=== PATIENT | female | born 1985 | race Caucasian/White ===

== ENCOUNTER 2017-07-08 13:02 | Emergency (ER) | payer OTHER ==
[2017-07-08] MEDS: LEVALBUTEROL 1.25 MG/0.5 ML CONCENTRATE NEB INH ×3 (17:15→17:31)
[2017-07-08] MEDS: AUGMENTIN 875 MG TAB PO (17:46)
== END 2017-07-08 17:51 | disposition home or self-care (01) ==
LOC: M ED 13:02
DX: J01.90 Acute sinusitis, unspecified (principal); J20.9 Acute bronchitis, unspecified; F17.200 Nicotine dependence, unspecified, uncomplicated
CPT/HCPCS: 71046

== ENCOUNTER 2017-12-05 16:26 | Inpatient (IN) | payer OTHER ==
[2017-12-05 17:13] LABS: HEMATOCRIT 41.6 % (36.0-47.0); HEMOGLOBIN 12.8 g/dl (12.0-15.5); MEAN CORPUSCULAR HEMOGLOBIN 25.7 pg (27.0-33.0); MEAN CORPUSCULAR HGB CONC 30.8 g/dl (32.0-36.5); MEAN CORPUSCULAR VOLUME 83.4 fl (80.0-96.0); PLATELET COUNT, AUTOMATED 397 10^3/uL (150-450); RED BLOOD COUNT 4.99 10^6/uL (4.00-5.40); RED CELL DISTRIBUTION WIDTH 14.6 % (11.5-14.5); WHITE BLOOD COUNT 11.6 10^3/uL (4.0-10.0)
[2017-12-05 17:27] LABS: CONTROL LINE HCG INT CTR LINE PRESENT; HCG, SERUM QUALITATIVE NEGATIVE (NEGATIVE)
[2017-12-05 17:31] LABS: AMPHETAMINES LEVEL URINE NEGATIVE (NEGATIVE); BARBITURATES URINE NEGATIVE (NEGATIVE); BENZODIAZEPINES URINE NEGATIVE (NEGATIVE); CANNABINOIDS URINE NEGATIVE (NEGATIVE); COCAINE METABOLITE URINE NEGATIVE (NEGATIVE); METHADONE URINE NEGATIVE (NEGATIVE); OPIATES URINE NEGATIVE (NEGATIVE); PHENCYCLIDINE URINE NEGATIVE (NEGATIVE)
[2017-12-05 17:48] LABS: ACETAMINOPHEN LEVEL < 2.0 UG/ML (10.0-30.0); ALBUMIN 3.1 GM/DL (3.2-5.2); ALBUMIN/GLOBULIN RATIO 0.65 (1.00-1.93); ALKALINE PHOSPHATASE 144 U/L (45-117); ALT/SGPT 27 U/L (12-78); ANION GAP 8 MEQ/L (8-16); AST/SGOT 18 U/L (7-37); BILIRUBIN,DIRECT < 0.1 MG/DL (0.0-0.2); BILIRUBIN,TOTAL 0.3 MG/DL (0.2-1.0); BLOOD UREA NITROGEN 13 MG/DL (7-18); CALCIUM LEVEL 8.2 MG/DL (8.5-10.1); CARBON DIOXIDE LEVEL 27 MEQ/L (21-32); CHLORIDE LEVEL 104 MEQ/L (98-107); ETHYL ALCOHOL (ETHANOL) < 0.003 % (0.000-0.010); GLOMERULAR FILTRATION RATE > 60.0 (>60); GLUCOSE, FASTING 198 MG/DL (70-100); POTASSIUM SERUM 4.1 MEQ/L (3.5-5.1); SODIUM LEVEL 139 MEQ/L (136-145); TOTAL PROTEIN 7.9 GM/DL (6.4-8.2)
[2017-12-05 18:39] LABS: ESTIMATED AVERAGE GLUCOSE 186 MG/DL (60-110); HEMOGLOBIN A1c 8.1 %
[2017-12-05] MEDS: diphenhydrAMINE 25 MG CAP PO (23:32)
[2017-12-06] MEDS ORDERED: MAALOX 30 ML SUSP *UDC PO (15:30)
[2017-12-06] MEDS ORDERED: MOM 30ML SUSPENSION UDC PO (15:30)
[2017-12-06] MEDS: NICOTINE 21MG/24HR 1 EA TRANSDERMAL TD (20:04)
[2017-12-06] MEDS ORDERED: NICOTINE 21MG/24HR 1 EA TRANSDERMAL TD (21:00)
[2017-12-07] MEDS: NICOTINE 21MG/24HR 1 EA TRANSDERMAL TD (08:09)
[2017-12-07] MEDS: INFLUENZA QUADRIVALENT PF VACCINE 0.5ML SYRINGE (90686) IM (08:10)
[2017-12-07] MEDS: NYSTATIN 100,000 UNITS/GM TOPICAL PWD 15 GM TOP ×2 (09:00→21:00)
[2017-12-07] MEDS: LOTRISONE CREAM 15 GM (BETAMETH/CLOTRIMAZOLE) TOP ×2 (11:41→21:32)
[2017-12-07] MEDS: LORazepam 1 MG TAB PO (11:42)
[2017-12-07] MEDS: FLUoxetine 20 MG CAP PO (14:21)
[2017-12-07] MEDS: ARIPiprazole 2 MG TAB PO (14:22)
[2017-12-07] MEDS: metFORMIN (GLUCOPHAGE) 500 MG TAB PO (17:17)
[2017-12-07] MEDS: traZODone 50 MG TAB PO (21:31)
[2017-12-08 06:56] LABS: HEMOGLOBIN 12.4 g/dl (12.0-15.5); MEAN CORPUSCULAR HEMOGLOBIN 25.5 pg (27.0-33.0); MEAN CORPUSCULAR VOLUME 82.3 fl (80.0-96.0); PLATELET COUNT, AUTOMATED 372 10^3/uL (150-450); RED BLOOD COUNT 4.86 10^6/uL (4.00-5.40); RED CELL DISTRIBUTION WIDTH 14.3 % (11.5-14.5); WHITE BLOOD COUNT 9.7 10^3/uL (4.0-10.0)
[2017-12-08 07:29] LABS: CHOLESTEROL LEVEL 177 MG/DL (<200); CHOLESTEROL RISK RATIO 5.531 (<5); FREE THYROXINE INDEX 2.9 % (1.3-4.8); HDL CHOLESTEROL 32 MG/DL (>40); LDL CHOLESTEROL 124 MG/DL (<100); NON-HDL-C 145 MG/DL; T UPTAKE 32 % (30-39); THYROXINE (T4) 9.2 UG/DL (4.5-12.0); TRIGLYCERIDES LEVEL 106 MG/DL (<150)
[2017-12-08] MEDS: metFORMIN (GLUCOPHAGE) 500 MG TAB PO ×3 (08:00→17:02)
[2017-12-08] MEDS: NYSTATIN 100,000 UNITS/GM TOPICAL PWD 15 GM TOP ×3 (08:50→20:22)
[2017-12-08] MEDS: LOTRISONE CREAM 15 GM (BETAMETH/CLOTRIMAZOLE) TOP ×2 (08:51→20:22)
[2017-12-08] MEDS: FLUoxetine 20 MG CAP PO (08:51)
[2017-12-08] MEDS: NICOTINE 21MG/24HR 1 EA TRANSDERMAL TD (08:52)
[2017-12-08 16:57] LABS: BEDSIDE GLUCOSE 149 MG/DL (70-105)
[2017-12-08] MEDS: traZODone 50 MG TAB PO (20:21)
[2017-12-09 06:35] LABS: BEDSIDE GLUCOSE 148 MG/DL (70-105)
[2017-12-09] MEDS: NICOTINE 21MG/24HR 1 EA TRANSDERMAL TD (08:13)
[2017-12-09] MEDS: metFORMIN (GLUCOPHAGE) 500 MG TAB PO ×2 (08:13→17:18)
[2017-12-09] MEDS: LOTRISONE CREAM 15 GM (BETAMETH/CLOTRIMAZOLE) TOP ×2 (08:13→22:13)
[2017-12-09] MEDS: NYSTATIN 100,000 UNITS/GM TOPICAL PWD 15 GM TOP ×2 (08:13→21:00)
[2017-12-09] MEDS: FLUoxetine 20 MG CAP PO (08:13)
[2017-12-09] MEDS: ACETAMINOPHEN TAB 650MG DOSE (2X325MG) PO (12:17)
[2017-12-09] MEDS ORDERED: PILL CRUSHER/CUTTER 1 EACH XX (15:00)
[2017-12-09 17:09] LABS: BEDSIDE GLUCOSE 164 MG/DL (70-105)
[2017-12-09] MEDS: LORazepam 1 MG TAB PO (20:52)
[2017-12-09] MEDS: traZODone 50 MG TAB PO (22:07)
[2017-12-10 06:17] LABS: BEDSIDE GLUCOSE 88 MG/DL (70-105)
[2017-12-10] MEDS: LOTRISONE CREAM 15 GM (BETAMETH/CLOTRIMAZOLE) TOP ×2 (08:20→20:54)
[2017-12-10] MEDS: metFORMIN (GLUCOPHAGE) 500 MG TAB PO ×2 (08:20→17:11)
[2017-12-10] MEDS: NICOTINE 21MG/24HR 1 EA TRANSDERMAL TD (08:20)
[2017-12-10] MEDS: FLUoxetine 20 MG CAP PO (08:20)
[2017-12-10] MEDS: NYSTATIN 100,000 UNITS/GM TOPICAL PWD 15 GM TOP ×2 (08:20→20:55)
[2017-12-10 17:13] LABS: BEDSIDE GLUCOSE 120 MG/DL (70-105)
[2017-12-10] MEDS: LORazepam 1 MG TAB PO (20:14)
[2017-12-10] MEDS: traZODone 50 MG TAB PO (20:53)
[2017-12-11] MEDS: ACETAMINOPHEN TAB 650MG DOSE (2X325MG) PO (01:56)
[2017-12-11] MEDS: NICOTINE 21MG/24HR 1 EA TRANSDERMAL TD (08:13)
[2017-12-11] MEDS: metFORMIN (GLUCOPHAGE) 500 MG TAB PO ×2 (08:13→17:06)
[2017-12-11] MEDS: FLUoxetine 20 MG CAP PO (08:13)
[2017-12-11] MEDS: NYSTATIN 100,000 UNITS/GM TOPICAL PWD 15 GM TOP ×2 (09:38→21:00)
[2017-12-11] MEDS: LOTRISONE CREAM 15 GM (BETAMETH/CLOTRIMAZOLE) TOP ×2 (09:38→21:03)
[2017-12-11 11:16] LABS: BEDSIDE GLUCOSE 115 MG/DL (70-105)
[2017-12-11] MEDS: hydrOXYzine 50 MG TAB PO (11:41)
[2017-12-11 16:59] LABS: BEDSIDE GLUCOSE 132 MG/DL (70-105)
[2017-12-11] MEDS: traZODone 50 MG TAB PO (22:50)
[2017-12-12 06:34] LABS: BEDSIDE GLUCOSE 109 MG/DL (70-105)
[2017-12-12] MEDS: metFORMIN (GLUCOPHAGE) 500 MG TAB PO ×2 (08:00→17:00)
[2017-12-12] MEDS: FLUoxetine 20 MG CAP PO (08:30)
[2017-12-12] MEDS: NYSTATIN 100,000 UNITS/GM TOPICAL PWD 15 GM TOP ×2 (08:30→20:22)
[2017-12-12] MEDS: LOTRISONE CREAM 15 GM (BETAMETH/CLOTRIMAZOLE) TOP ×2 (08:31→20:19)
[2017-12-12] MEDS: NICOTINE 21MG/24HR 1 EA TRANSDERMAL TD (08:32)
[2017-12-12 17:03] LABS: BEDSIDE GLUCOSE 131 MG/DL (70-105)
[2017-12-13 06:17] LABS: BEDSIDE GLUCOSE 115 MG/DL (70-105)
[2017-12-13] MEDS: metFORMIN (GLUCOPHAGE) 500 MG TAB PO (08:00)
[2017-12-13] MEDS: FLUoxetine 20 MG CAP PO (08:02)
[2017-12-13] MEDS: NYSTATIN 100,000 UNITS/GM TOPICAL PWD 15 GM TOP (08:03)
[2017-12-13] MEDS: LOTRISONE CREAM 15 GM (BETAMETH/CLOTRIMAZOLE) TOP (08:03)
[2017-12-13] MEDS: NICOTINE 21MG/24HR 1 EA TRANSDERMAL TD (08:03)
[2017-12-13] MEDS: hydrOXYzine 50 MG TAB PO (10:09)
== END 2017-12-13 12:00 | disposition home or self-care (01) | DRG 885 ==
LOC: M PSY 12-08 23:33 → M ED INP 12-06 15:25 → M PSY 12-09 21:02 → M ED 16:26 → M PSY 12-06 16:15
DX: F31.81 Bipolar II disorder (principal); Z68.44 Body mass index [BMI] 60.0-69.9, adult; F41.1 Generalized anxiety disorder; F43.10 Post-traumatic stress disorder, unspecified; Z79.899 Other long term (current) drug therapy; E66.9 Obesity, unspecified; Z63.5 Disruption of family by separation and divorce; F17.200 Nicotine dependence, unspecified, uncomplicated; E11.9 Type 2 diabetes mellitus without complications

== ENCOUNTER 2018-07-11 23:31 | Inpatient (IN) | payer OTHER ==
[~2018-07-11] VITALS: Ht 170.2 cm; Wt 213.6 kg
[~2018-07-11 23:31] MED LIST: ARIP1TAB6 PO; AUGM875T28 PO; CLAR1TAB2 PO; CLOT1CRE71 TOP; FLUO20CA19 PO; HYDRO50TAB PO; METF500T13 PO; MUCI600T37 PO; NICO21PAT TD; NYAM10003 TOP; PRED20TA PO; TRAZO50TA PO
[2018-07-12 00:03] LABS: HEMATOCRIT 41.3 % (36.0-47.0); MEAN CORPUSCULAR HEMOGLOBIN 24.2 pg (27.0-33.0); MEAN CORPUSCULAR HGB CONC 29.1 g/dl (32.0-36.5); MEAN CORPUSCULAR VOLUME 83.3 fl (80.0-96.0); PLATELET COUNT, AUTOMATED 348 10^3/uL (150-450); RED BLOOD COUNT 4.96 10^6/uL (4.00-5.40); WHITE BLOOD COUNT 9.1 10^3/uL (4.0-10.0)
[2018-07-12 00:26] LABS: HCG, SERUM QUALITATIVE NEGATIVE (NEGATIVE)
[2018-07-12 00:42] LABS: ACETAMINOPHEN LEVEL < 2.0 UG/ML (10.0-30.0); ALT/SGPT 19 U/L (12-78); BILIRUBIN,DIRECT < 0.1 MG/DL (0.0-0.2); BILIRUBIN,TOTAL 0.3 MG/DL (0.2-1.0); BLOOD UREA NITROGEN 6 MG/DL (7-18); CALCIUM LEVEL 8.5 MG/DL (8.5-10.1); CARBON DIOXIDE LEVEL 32 MEQ/L (21-32); CHLORIDE LEVEL 101 MEQ/L (98-107); CREATININE FOR GFR 0.72 MG/DL (0.55-1.30); ETHYL ALCOHOL (ETHANOL) < 0.003 % (0.000-0.010); GLOMERULAR FILTRATION RATE > 60.0 (>60); GLUCOSE, FASTING 298 MG/DL (70-100); POTASSIUM SERUM 3.8 MEQ/L (3.5-5.1); SALICYLATE LEVEL < 1.7 MG/DL (5.0-30.0); SODIUM LEVEL 138 MEQ/L (136-145); TOTAL PROTEIN 7.2 GM/DL (6.4-8.2)
[2018-07-12 01:43] LABS: AMPHETAMINES LEVEL URINE NEGATIVE (NEGATIVE); BARBITURATES URINE NEGATIVE (NEGATIVE); BENZODIAZEPINES URINE NEGATIVE (NEGATIVE); CANNABINOIDS URINE POSITIVE (NEGATIVE); COCAINE METABOLITE URINE NEGATIVE (NEGATIVE); METHADONE URINE NEGATIVE (NEGATIVE); OPIATES URINE NEGATIVE (NEGATIVE); PHENCYCLIDINE URINE NEGATIVE (NEGATIVE)
[2018-07-12 02:02] LABS: HEMOGLOBIN A1c 10.6 %
[2018-07-12] MEDS ORDERED: SITagliptin 50 MG TAB (JANUVIA) PO ONE (02:30)
[2018-07-12] MEDS ORDERED: MAALOX 30 ML SUSP *UDC PO PRN (02:45)
[2018-07-12] MEDS ORDERED: MOM 30ML SUSPENSION UDC PO PRN (02:45)
[2018-07-12 03:10] VITALS: BP 144/81
[2018-07-12] MEDS ORDERED: VOLT1GEL15 EXT (03:31)
[2018-07-12] MEDS ORDERED: FLUO40CA PO (03:31)
[2018-07-12] MEDS ORDERED: SITA50TAB PO (03:31)
[2018-07-12] MEDS ORDERED: ABIL1TAB11 PO (03:31)
[2018-07-12] MEDS ORDERED: TRAZ-160 PO (03:31)
[2018-07-12 06:33] VITALS: BP 131/60
[2018-07-12] MEDS: NICOTINE 21MG/24HR 1 EA TRANSDERMAL TD SCH (08:57)
[2018-07-12] MEDS: CLOTRIMAZOLE 1% TOPICAL CREAM 30GM TOP SCH ×2 (09:00→20:03)
[2018-07-12] MEDS: BETAMETHASONE VAL 0.1% CR 15 GM TOP SCH ×2 (09:00→20:03)
[2018-07-12] MEDS: FLUoxetine 20 MG CAP PO SCH (12:03)
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
[2018-07-12 18:00] VITALS: BP 150/75
[2018-07-13 06:39] VITALS: BP 148/70
[2018-07-13 07:40] LABS: FREE THYROXINE INDEX 3.1 % (1.3-4.8); THYROID STIMULATING HORMONE 5.22 uIU/ML (0.358-3.740); THYROXINE (T4) 10.1 UG/DL (4.5-12.0)
[2018-07-13] MEDS: SITagliptin 50 MG TAB (JANUVIA) PO SCH (08:38)
[2018-07-13] MEDS: NICOTINE 21MG/24HR 1 EA TRANSDERMAL TD SCH (08:38)
[2018-07-13] MEDS: FLUoxetine 20 MG CAP PO SCH (08:38)
[2018-07-13] MEDS: CLOTRIMAZOLE 1% TOPICAL CREAM 30GM TOP SCH ×2 (08:39→20:20)
[2018-07-13] MEDS: BETAMETHASONE VAL 0.1% CR 15 GM TOP SCH ×2 (08:39→20:20)
[2018-07-13] MEDS ORDERED: SITagliptin 50 MG TAB (JANUVIA) PO SCH (09:00)
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
[2018-07-13] MEDS ORDERED: PILL CUTTER 1 EACH XX PRN (16:15)
[2018-07-13] MEDS: buPROPion 100 MG TAB PO SCH (16:16)
[2018-07-13 18:33] VITALS: BP 134/69
[2018-07-13] MEDS: traZODone 50 MG TAB PO PRN (20:19)
[2018-07-14] MEDS: LEVOTHYROXINE 50MCG TABLET (0.05MG) PO SCH (05:53)
[2018-07-14 06:34] VITALS: BP 140/93
[2018-07-14] MEDS: FLUoxetine 20 MG CAP PO SCH (08:12)
[2018-07-14] MEDS: SITagliptin 50 MG TAB (JANUVIA) PO SCH (08:12)
[2018-07-14] MEDS: buPROPion 100 MG TAB PO SCH ×2 (08:12→16:12)
[2018-07-14] MEDS: NICOTINE 21MG/24HR 1 EA TRANSDERMAL TD SCH (08:13)
[2018-07-14] MEDS: CLOTRIMAZOLE 1% TOPICAL CREAM 30GM TOP SCH ×2 (08:14→20:37)
[2018-07-14] MEDS: BETAMETHASONE VAL 0.1% CR 15 GM TOP SCH ×2 (08:15→20:37)
[2018-07-14] MEDS ORDERED: buPROPion 100 MG TAB PO SCH (09:00)
--- NOTE | 2018-07-14 14:31 | HPE ---
DATE OF ADMISSION: 07/12/2018 HISTORY OF THE PRESENT ILLNESS: Please refer to psychiatric history and evaluation for further details on this admission. This examination and history is intended for medical issues which may need treatment, followup, or consult on this 33-year-old female. ALLERGIES: No known allergies. PRIMARY CARE PROVIDER: Jaleesa. SOCIAL HISTORY: She is . Her is a soldier, currently stationed at [place]. She has one child. Smokes one pack of cigarettes per day. Ethyl alcohol (EtOH) rarely. Illicit drugs: Marijuana. IV drug use: None. FAMILY HISTORY: Mother is alive with diabetes, history of breast cancer. Father is , completed suicide. Siblings: Two brothers and one sister alive, health unknown. Paternal uncle completed suicide. PAST MEDICAL HISTORY: Anxiety. Depression. History of suicidal ideation, self harm. Obesity with a body mass index (BMI) of 73.5. Non-insulin dependent diabetes type 2. PAST SURGICAL HISTORY: section times one. EKG on file; sinus tachycardia, done 12/07/2017. LABORATORY STUDIES: Urine was positive for cannabinoids. Sodium 138, potassium 3.8, chloride 101, CO2 of 32, BUN 6, creatinine 0.72, nonfasting glucose of 298, hemoglobin A1c is 10.6. TSH is elevated at 6.460. Beta hCG is negative. White count 9.1, hemoglobin 12, hematocrit 41.3, platelets 348. Chest x-ray showed no acute disease. HOME MEDICATIONS: - Abilify 5 mg by mouth nightly - fluoxetine 40 mg by mouth daily - Januvia 50 mg by mouth daily - trazodone 50 mg by mouth nightly as needed for sleep - Voltaren gel four times a day as needed for pain REVIEW OF SYSTEMS: Eleven systems review was done and her only complaint is of itching, dry, cracked, excoriated feet. PHYSICAL EXAM: A 33-year-old obese female in no acute distress.. Height 67 inches, weight 213 kg, body mass index (BMI) 73.5. Blood pressure 143/83, pulse 100, respirations 18, oxygen saturation (O2 sat) 94% on room air, temperature is 98. The patient is alert and oriented times three. Pupils are equal and reactive to light. Pharynx: Tongue and gums pink and moist. Tongue is midline. Neck is supple without lymphadenopathy. No thyromegaly. No goiter. Jugular venous pressure is below clavicle. Chest is clear to auscultation without wheeze or retractions. Heart is regular without murmur or gallop. Abdomen is obese. No masses, pulsations or bruits. No organomegaly. Bowel sounds are positive. Genital/Rectal: Not done. Extremities show no cyanosis, clubbing, or edema. Bilateral feet are excoriated, cracked, dry, red, slight vesicular-type rash between toes. IMPRESSION AND PLAN: Psychiatric plan per psychiatry. Non-insulin dependent diabetes, type 2, with poor control. Will check fingerstick blood sugar twice a day, adjust medication as needed. Increase her Januvia to 100. Change her to a consistent carbohydrate diet. Will need diabetic education, follow as an outpatient. Bilateral tinea pedis. Lotrisone, betamethasone cream and clobetasol cream twice a day to feet after washed daily with warm, soapy water. Elevated thyroid-stimulating hormone (TSH). Will get a complete thyroid profile in the morning.
[2018-07-14] MEDS: ACETAMINOPHEN TAB 650MG DOSE (2X325MG) PO PRN (14:55)
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
[2018-07-14 18:02] VITALS: BP 125/70
[2018-07-14] MEDS: traZODone 50 MG TAB PO PRN (20:36)
[2018-07-15] MEDS: LEVOTHYROXINE 50MCG TABLET (0.05MG) PO SCH (05:49)
[2018-07-15 06:38] VITALS: BP 133/63
[2018-07-15] MEDS: MODAFINIL 100 MG TABLET PO SCH (08:04)
[2018-07-15] MEDS: buPROPion 100 MG TAB PO SCH (08:04)
[2018-07-15] MEDS: NICOTINE 21MG/24HR 1 EA TRANSDERMAL TD SCH (08:04)
[2018-07-15] MEDS: SITagliptin 50 MG TAB (JANUVIA) PO SCH (08:04)
[2018-07-15] MEDS: FLUoxetine 20 MG CAP PO SCH (08:05)
[2018-07-15] MEDS: BETAMETHASONE VAL 0.1% CR 15 GM TOP SCH ×2 (11:40→22:31)
[2018-07-15] MEDS: CLOTRIMAZOLE 1% TOPICAL CREAM 30GM TOP SCH ×2 (11:40→22:31)
[2018-07-15] MEDS: ACETAMINOPHEN TAB 650MG DOSE (2X325MG) PO PRN ×2 (11:43→20:50)
[2018-07-15 18:09] VITALS: BP 147/67
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
[2018-07-15] MEDS: traZODone 50 MG TAB PO PRN (20:48)
[2018-07-16] MEDS: LEVOTHYROXINE 75MCG TABLET (0.075MG) PO SCH (06:00)
[2018-07-16 07:02] VITALS: BP 132/84
[2018-07-16] MEDS: buPROPion 75 MG TAB PO SCH (08:51)
[2018-07-16] MEDS: MODAFINIL 100 MG TABLET PO SCH (08:51)
[2018-07-16] MEDS: SITagliptin 50 MG TAB (JANUVIA) PO SCH (08:51)
[2018-07-16] MEDS: CLOTRIMAZOLE 1% TOPICAL CREAM 30GM TOP SCH ×2 (08:51→22:20)
[2018-07-16] MEDS: FLUoxetine 20 MG CAP PO SCH (08:51)
[2018-07-16] MEDS: NICOTINE 21MG/24HR 1 EA TRANSDERMAL TD SCH (08:52)
[2018-07-16] MEDS: BETAMETHASONE VAL 0.1% CR 15 GM TOP SCH ×2 (08:52→22:21)
[2018-07-16] MEDS: ACETAMINOPHEN TAB 650MG DOSE (2X325MG) PO PRN ×2 (08:56→20:40)
[2018-07-16] MEDS: NYSTATIN 100,000 UNITS/GM TOPICAL PWD 15 GM TOP SCH ×2 (12:05→22:19)
--- NOTE | 2018-07-16 14:54 | MHIPNPDOC ---
[facility] Progress Note Progress Note DATE OF SERVICE: 07/16/18 HISTORY: Patient treated for depression, stating that her medicines are no longer working. She is guilty about a marital affair and feels awful. She is isolating herself from other patients because she states they are making fun of her. She requested definitely to be reduced to 100 mg because it is causing her sleep difficulties. VITAL SIGNS: See below. NEW TEST RESULTS: On. CURRENT MEDICATIONS: See below. MENTAL STATUS EXAMINATION: Patient is a 33-year old female, who is, admitted for depression. Speech: Is, normal. Language skills are. No disturbance. Thought processes including:. No disturbance. Thought content: Sad and guilty. Abstract reasoning, and computation: To abstract. Description of associations: Loose association. Description of abnormal or psychotic thoughts:. No psychotic thought. Judgment: Good. Insight:. Good. Orientation: Intact 3. Recent and remote memory:. No difficulties. Attention span and concentration:. No difficulties. Language: normal. Fund of knowledge: Intact. Mood:, Sad. Affect:, Congruent. DIAGNOSES: 1., Major depression. 2., Marital stress.. ASSESSMENT: 33-year-old female with history of depression and recent marital stress MANAGEMENT PLAN: As per Dr. Mccord. TIME SPENT: 30 minutes. Vital Signs Vital Signs Date Time Temp Pulse Resp B/P (MAP) Pulse Ox O2 Delivery O2 Flow Rate FiO2 07/16/18 07:02 98.1 101 16 132/84 (100) 07/12/18 02:27 93 Room Air Laboratory Data 24H Labs Laboratory Tests 2 07/15/18 16:20: Bedside Glucose (Misc Panel) 253H 07/16/18 06:08: Bedside Glucose (Misc Panel) 192H Current Medications Current Medications Acetaminophen (Tylenol Tab) 650 mg Q6HP PRN PO HEADACHE or DISCOMFORT Last administered on 07/16/18at 08:56; Start 07/12/18 at 02:45 Al Hydrox/Mg Hydrox/Simethicone (Mylanta) 30 ml Q4HP PRN PO HEARTBURN/INDIGESTION; Start 07/12/18 at 02:45 Aripiprazole (AbiLIFY) 5 mg BID PO Last administered on 07/16/18at 08:50; Start 07/12/18 at 09:00 Betamethasone Valerate (Valisone) to feet after wash... BID TOP Last administered on 07/16/18at 08:52; Start 07/12/18 at 09:00 Bupropion HCl (Wellbutrin) 50 mg DAILY PO Last administered on 07/14/18at 08:12; Start 07/13/18 at 16:00; Stop 07/14/18 at 15:51; Status DC Bupropion HCl (Wellbutrin) 50 mg DAILY PO ; Start 07/14/18 at 09:00; Status Cancel Bupropion HCl (Wellbutrin) 100 mg DAILY PO Last administered on 07/15/18at 08:04; Start 07/14/18 at 16:00; Stop 07/15/18 at 13:17; Status DC Bupropion HCl (Wellbutrin) 150 mg DAILY PO Last administered on 07/16/18at 08:51; Start 07/16/18 at 09:00 Clotrimazole (Lotrimin) apply after wash... BID TOP Last administered on 07/16/18 08:51; Start 07/12/18 at 09:00 Fluoxetine HCl (PROzac) 20 mg DAILY PO Last administered on 07/16/18at 08:51; Start 07/14/18 at 09:00 Fluoxetine HCl (PROzac) 60 mg DAILY PO Last administered on 07/13/18at 08:38; Start 07/12/18 at 09:00; Stop 07/13/18 at 15:53; Status DC Home Med (Med Rec Complete!) ASDIRECTED XX ; Start 07/12/18 at 03:45; Stop 07/12/18 at 03:45; Status DC Levothyroxine Sodium (Synthroid) 50 mcg DAILY@06 PO Last administered on 07/15/18at 05:49; Start 07/14/18 at 06:00; Stop 07/15/18 at 13:17; Status DC Levothyroxine Sodium (Synthroid) 75 mcg DAILY@06 PO Last administered on 07/16/18at 06:00; Start 07/16/18 at 06:00 Magnesium Hydroxide (Milk Of Magnesia) 30 ml DAILYPRN PRN PO CONSTIPATION; Start 07/12/18 at 02:45 Modafinil (Provigil) 100 mg QAM PO ; Start 07/17/18 at 09:00 Modafinil (Provigil) 200 mg QAM PO Last administered on 07/16/18 08:51; Start 07/15/18 at 09:00; Stop 07/16/18 at 13:42; Status DC Nicotine (Nicoderm Cq 21mg) 1 patch DAILY TD Last administered on 07/16/18 08:52; Start 07/12/18 at 09:00 Nystatin (Mycostatin Powder, Nystop) To abdominal folds ... BID TOP Last administered on 07/16/18at 12:05; Start 07/16/18 at 12:00 Sitagliptin Phosphate (Januvia) 25 mg DAILY PO ; Start 07/13/18 at 09:00; Status Cancel Sitagliptin Phosphate (Januvia) 100 mg DAILY@0800 PO Last administered on 07/16/18 08:51; Start 07/13/18 at 08:00 Trazodone HCl (Desyrel) 50 mg QHSP PRN PO INSOMNIA Last administered on 07/15/18 20:48; Start 07/12/18 at 02:45 Allergies Coded Allergies: No Known Allergies (Unverified , 07/11/18) ESME STAHL MD July 16, 2018 14:54
[2018-07-16 18:12] VITALS: BP 119/58
[2018-07-17] MEDS: LEVOTHYROXINE 75MCG TABLET (0.075MG) PO SCH (06:00)
[2018-07-17 06:46] VITALS: BP 113/53
[2018-07-17] MEDS: FLUoxetine 20 MG CAP PO SCH (08:11)
[2018-07-17] MEDS: MODAFINIL 100 MG TABLET PO SCH (08:11)
[2018-07-17] MEDS: SITagliptin 50 MG TAB (JANUVIA) PO SCH (08:12)
[2018-07-17] MEDS: NICOTINE 21MG/24HR 1 EA TRANSDERMAL TD SCH (08:12)
[2018-07-17] MEDS: buPROPion 75 MG TAB PO SCH (08:12)
[2018-07-17] MEDS: ACETAMINOPHEN TAB 650MG DOSE (2X325MG) PO PRN ×2 (08:16→20:22)
[2018-07-17] MEDS: CLOTRIMAZOLE 1% TOPICAL CREAM 30GM TOP SCH ×2 (09:55→20:23)
[2018-07-17] MEDS: NYSTATIN 100,000 UNITS/GM TOPICAL PWD 15 GM TOP SCH ×2 (09:55→20:23)
[2018-07-17] MEDS: BETAMETHASONE VAL 0.1% CR 15 GM TOP SCH ×2 (09:55→20:23)
--- NOTE | 2018-07-17 15:13 | MHIPNPDOC ---
[facility] Progress Note Progress Note DATE OF SERVICE: 07/17/18 HISTORY: 33-year-old female admitted for crying spells, guilt and numerous depressive symptoms. VITAL SIGNS: See below. NEW TEST RESULTS: None. CURRENT MEDICATIONS: See below. MENTAL STATUS EXAMINATION: Patient is a 33-year-old female-year old female, who is under the care of [facility] for hypothyroidism, obesity, apnea, depression and uncontrolled diabetes. Speech: Is within normal limits. Language skills are. Adequate. Thought processes including:. No disturbance. Thought content:. No gross abnormalities. Abstract reasoning, and computation: AbleTo abstract. Description of associations:. No loose associations. Description of abnormal or psychotic thoughts: No psychotic thought. Judgment: Fair. Insight: Fair. Orientation: Intact 3. Recent and remote memory:. Intact. Attention span and concentration: Intact. Language:. No disturbance. Fund of knowledge:. Intact. Mood: Sad. Affect:, Congruent. DIAGNOSES: 1. Major depressive illness. 2., Marital difficulties. 3., Numerous medical problems. ASSESSMENT: As above MANAGEMENT PLAN:. As per treatment team. TIME SPENT: 30 minutes. Vital Signs Vital Signs Date Time Temp Pulse Resp B/P (MAP) Pulse Ox O2 Delivery O2 Flow Rate FiO2 07/17/18 06:46 98.3 89 14 113/53 (73) 07/12/18 02:27 93 Room Air Laboratory Data 24H Labs Laboratory Tests 2 07/16/18 17:12: Bedside Glucose (Misc Panel) 258H 07/17/18 06:03: Bedside Glucose (Misc Panel) 191H Current Medications Current Medications Acetaminophen (Tylenol Tab) 650 mg Q6HP PRN PO HEADACHE or DISCOMFORT Last ad ministered on 07/17/18at 08:16; Start 07/12/18 at 02:45 Al Hydrox/Mg Hydrox/Simethicone (Mylanta) 30 ml Q4HP PRN PO HEARTBURN/IN DIGESTION; Start 07/12/18 at 02:45 Aripiprazole (AbiLIFY) 5 mg BID PO Last administered on 07/17/18at 08:11; Start 07/12/18 at 09:00 Betamethasone Valerate (Valisone) to feet after wash... BID TOP Last administered on 07/17/18at 09:55; Start 07/12/18 at 09:00 Bupropion HCl (Wellbutrin) 50 mg DAILY PO Last administered on 07/14/18at 08:12; Start 07/13/18 at 16:00; Stop 07/14/18 at 15:51; Status DC Bupropion HCl (Wellbutrin) 50 mg DAILY PO ; Start 07/14/18 at 09:00; Status Cancel Bupropion HCl (Wellbutrin) 100 mg DAILY PO Last administered on 07/15/18at 08:04; Start 07/14/18 at 16:00; Stop 07/15/18 at 13:17; Status DC Bupropion HCl (Wellbutrin) 150 mg DAILY PO Last administered on 07/17/18at 08:12; Start 07/16/18 at 09:00 Clotrimazole (Lotrimin) apply after wash... BID TOP Last administered on 07/17/18at 09:55; Start 07/12/18 at 09:00 Fluoxetine HCl (PROzac) 20 mg DAILY PO Last administered on 07/17/18at 08:11; Start 07/14/18 at 09:00 Fluoxetine HCl (PROzac) 60 mg DAILY PO Last administered on 07/13/18at 08:38; Start 07/12/18 at 09:00; Stop 07/13/18 at 15:53; Status DC Home Med (Med Rec Complete!) ASDIRECTED XX ; Start 07/12/18 at 03:45; Stop 07/12/18 at 03:45; Status DC Levothyroxine Sodium (Synthroid) 50 mcg DAILY@06 PO Last administered on 07/15/18at 05:49; Start 07/14/18 at 06:00; Stop 07/15/18 at 13:17; Status DC Levothyroxine Sodium (Synthroid) 75 mcg DAILY@06 PO Last administered on 07/17/18at 06:00; Start 07/16/18 at 06:00 Magnesium Hydroxide (Milk Of Magnesia) 30 ml DAILYPRN PRN PO CONSTIPATION; Start 07/12/18 at 02:45 Modafinil (Provigil) 100 mg QAM PO Last administered on 07/17/18at 08:11; Start 07/17/18 at 09:00 Modafinil (Provigil) 200 mg QAM PO Last administered on 07/16/18 08:51; Start 07/15/18 at 09:00; Stop 07/16/18 at 13:42; Status DC Nicotine (Nicoderm Cq 21mg) 1 patch DAILY TD Last administered on 07/17/18 08:12; Start 07/12/18 at 09:00 Nystatin (Mycostatin Powder, Nystop) To abdominal folds ... BID TOP Last administered on 07/17/18 09:55; Start 07/16/18 at 12:00 Sitagliptin Phosphate (Januvia) 25 mg DAILY PO ; Start 07/13/18 at 09:00; Status Cancel Sitagliptin Phosphate (Januvia) 100 mg DAILY@0800 PO Last administered on 07/17/18 08:12; Start 07/13/18 at 08:00 Trazodone HCl (Desyrel) 50 mg QHSP PRN PO INSOMNIA Last administered on 07/15/18at 20:48; Start 07/12/18 at 02:45 Allergies Coded Allergies: No Known Allergies (Unverified , 07/11/18) ESME STAHL MD July 17, 2018 15:13
[2018-07-17 19:23] VITALS: BP 119/71
[2018-07-17] MEDS: traZODone 50 MG TAB PO PRN (20:22)
[2018-07-18] MEDS: LEVOTHYROXINE 75MCG TABLET (0.075MG) PO SCH (05:37)
[2018-07-18 07:10] VITALS: BP 108/57
[2018-07-18] MEDS: SITagliptin 50 MG TAB (JANUVIA) PO SCH (09:00)
[2018-07-18] MEDS: NICOTINE 21MG/24HR 1 EA TRANSDERMAL TD SCH (09:04)
[2018-07-18] MEDS: buPROPion 75 MG TAB PO SCH (09:04)
[2018-07-18] MEDS: FLUoxetine 20 MG CAP PO SCH (09:04)
[2018-07-18] MEDS: ACETAMINOPHEN TAB 650MG DOSE (2X325MG) PO PRN ×2 (09:04→20:11)
[2018-07-18] MEDS: MODAFINIL 100 MG TABLET PO SCH (09:04)
[2018-07-18] MEDS: BETAMETHASONE VAL 0.1% CR 15 GM TOP SCH ×2 (09:06→20:11)
[2018-07-18] MEDS: CLOTRIMAZOLE 1% TOPICAL CREAM 30GM TOP SCH ×2 (09:06→20:12)
[2018-07-18] MEDS: NYSTATIN 100,000 UNITS/GM TOPICAL PWD 15 GM TOP SCH ×2 (09:06→20:11)
--- NOTE | 2018-07-18 11:52 | MHIPNPDOC ---
[facility] Progress Note Progress Note DATE OF SERVICE: 07/18/18 HISTORY: 33-year-old female with hypothyroidism and depression, stating that she has a diagnosis of bipolar disorder in improved mood today. VITAL SIGNS: See below. NEW TEST RESULTS: None. CURRENT MEDICATIONS: See below. MENTAL STATUS EXAMINATION: Patient is a 33-year old female, who is, rated for depression with profound guilt. Speech: Is. Normal. Language skills are disturbance. Thought processes including:. No grossly abnormal. Thought. Thought content: No disturbance. Abstract reasoning, and computation: Able to abstract. Description of associations:. No loose associations. Description of abnormal or psychotic thoughts:, No psychotic thoughts. Judgment:. Good. Insight: Good. Orientation: Intact 3. Recent and remote memory:. No disturbance. Attention span and concentration:. Good. Language: No disturbance. Fund of knowledge: Complete. Mood: Good. Affect:, Bright. DIAGNOSES: 1. Bipolar disorder. 2., Relationship stress. 3., Hypothyroidism. ASSESSMENT:, As above MANAGEMENT PLAN:. As per treatment team. TIME SPENT: 30 minutes. Vital Signs Vital Signs Date Time Temp Pulse Resp B/P (MAP) Pulse Ox O2 Delivery O2 Flow Rate FiO2 07/18/18 07:10 97.4 93 14 108/57 (74) 07/12/18 02:27 93 Room Air Laboratory Data 24H Labs Laboratory Tests 2 07/17/18 17:01: Bedside Glucose (Misc Panel) 215H 07/18/18 05:43: Bedside Glucose (Misc Panel) 188H Current Medications Current Medications Acetaminophen (Tylenol Tab) 650 mg Q6HP PRN PO HEADACHE or DISCOMFORT Last administered on 07/18/18at 09:04; Start 07/12/18 at 02:45 Al Hydrox/Mg Hydrox/Simethicone (Mylanta) 30 ml Q4HP PRN PO HEARTBURN/INDIGESTION; Start 07/12/18 at 02:45 Aripiprazole (AbiLIFY) 5 mg BID PO Last administered on 07/18/18at 09:02; Start 07/12/18 at 09:00 Betamethasone Valerate (Valisone) to feet after wash... BID TOP Last administered on 07/18/18at 09:06; Start 07/12/18 at 09:00 Bupropion HCl (Wellbutrin) 50 mg DAILY PO Last administered on 07/14/18at 08:12; Start 07/13/18 at 16:00; Stop 07/14/18 at 15:51; Status DC Bupropion HCl (Wellbutrin) 50 mg DAILY PO ; Start 07/14/18 at 09:00; Status Cancel Bupropion HCl (Wellbutrin) 100 mg DAILY PO Last administered on 07/15/18at 08:04; Start 07/14/18 at 16:00; Stop 07/15/18 at 13:17; Status DC Bupropion HCl (Wellbutrin) 150 mg DAILY PO Last administered on 07/18/18at 09:04; Start 07/16/18 at 09:00 Clotrimazole (Lotrimin) apply after wash... BID TOP Last administered on at 09:06; Start 07/12/18 at 09:00 Fluoxetine HCl (PROzac) 20 mg DAILY PO Last administered on 07/18/18at 09:04; Start 07/14/18 at 09:00 Fluoxetine HCl (PROzac) 60 mg DAILY PO Last administered on 07/13/18at 08:38; Start 07/12/18 at 09:00; Stop 07/13/18 at 15:53; Status DC Home Med (Med Rec Complete!) ASDIRECTED XX ; Start 07/12/18 at 03:45; Stop 07/12/18 at 03:45; Status DC Levothyroxine Sodium (Synthroid) 50 mcg DAILY@06 PO Last administered on 07/15/18at 05:49; Start 07/14/18 at 06:00; Stop 07/15/18 at 13:17; Status DC Levothyroxine Sodium (Synthroid) 75 mcg DAILY@06 PO Last administered on 07/18/18at 05:37; Start 07/16/18 at 06:00 Magnesium Hydroxide (Milk Of Magnesia) 30 ml DAILYPRN PRN PO CONSTIPATION; Start 07/12/18 at 02:45 Modafinil (Provigil) 100 mg QAM PO Last administered on 07/18/18at 09:04; Start 07/17/18 at 09:00 Modafinil (Provigil) 200 mg QAM PO Last administered on 07/16/18at 08:51; Start 07/15/18 at 09:00; Stop 07/16/18 at 13:42; Status DC Nicotine (Nicoderm Cq 21mg) 1 patch DAILY TD Last administered on 07/18/18at 09:04; Start 07/12/18 at 09:00 Nystatin (Mycostatin Powder, Nystop) To abdominal folds ... BID TOP Last administered on 07/18/18at 09:06; Start 07/16/18 at 12:00 Sitagliptin Phosphate (Januvia) 25 mg DAILY PO ; Start 07/13/18 at 09:00; Status Cancel Sitagliptin Phosphate (Januvia) 100 mg DAILY@0800 PO Last administered on 07/18/18at 09:00; Start 07/13/18 at 08:00 Trazodone HCl (Desyrel) 50 mg QHSP PRN PO INSOMNIA Last administered on 07/17/18at 20:22; Start 07/12/18 at 02:45 Allergies Coded Allergies: No Known Allergies (Unverified , 07/11/18) ESME STAHL MD July 18, 2018 11:52
[2018-07-18 19:01] VITALS: BP 107/61
[2018-07-18] MEDS: traZODone 50 MG TAB PO PRN (20:09)
[2018-07-19] MEDS: LEVOTHYROXINE 75MCG TABLET (0.075MG) PO SCH (05:30)
[2018-07-19 06:48] VITALS: BP 112/57
[2018-07-19] MEDS: FLUoxetine 20 MG CAP PO SCH (08:25)
[2018-07-19] MEDS: SITagliptin 50 MG TAB (JANUVIA) PO SCH (08:25)
[2018-07-19] MEDS: MODAFINIL 100 MG TABLET PO SCH (08:25)
[2018-07-19] MEDS: buPROPion 75 MG TAB PO SCH (08:25)
[2018-07-19] MEDS: NICOTINE 21MG/24HR 1 EA TRANSDERMAL TD SCH (08:25)
[2018-07-19] MEDS: ACETAMINOPHEN TAB 650MG DOSE (2X325MG) PO PRN ×2 (08:27→20:15)
[2018-07-19] MEDS: BETAMETHASONE VAL 0.1% CR 15 GM TOP SCH ×2 (08:27→20:14)
[2018-07-19] MEDS: CLOTRIMAZOLE 1% TOPICAL CREAM 30GM TOP SCH ×2 (08:27→20:15)
[2018-07-19] MEDS: NYSTATIN 100,000 UNITS/GM TOPICAL PWD 15 GM TOP SCH ×2 (08:27→20:15)
[2018-07-19 18:01] VITALS: BP 144/64
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
[2018-07-20 06:26] VITALS: BP 116/55
[2018-07-20] MEDS: LEVOTHYROXINE 75MCG TABLET (0.075MG) PO SCH (06:43)
[2018-07-20] MEDS: ACETAMINOPHEN TAB 650MG DOSE (2X325MG) PO PRN (08:57)
[2018-07-20] MEDS: buPROPion 75 MG TAB PO SCH (08:57)
[2018-07-20] MEDS: MODAFINIL 100 MG TABLET PO SCH (08:57)
[2018-07-20] MEDS: FLUoxetine 20 MG CAP PO SCH (08:57)
[2018-07-20] MEDS: SITagliptin 50 MG TAB (JANUVIA) PO SCH (08:57)
[2018-07-20] MEDS: NYSTATIN 100,000 UNITS/GM TOPICAL PWD 15 GM TOP SCH (08:58)
[2018-07-20] MEDS: NICOTINE 21MG/24HR 1 EA TRANSDERMAL TD SCH (08:58)
[2018-07-20] MEDS: CLOTRIMAZOLE 1% TOPICAL CREAM 30GM TOP SCH (08:58)
[2018-07-20] MEDS: BETAMETHASONE VAL 0.1% CR 15 GM TOP SCH (08:59)
[2018-07-20] MEDS ORDERED: ARIP1TAB PO (11:01)
[2018-07-20] MEDS ORDERED: CLOTR1CR TOP (11:01)
[2018-07-20] MEDS ORDERED: NICO21PAT TD (11:01)
[2018-07-20] MEDS ORDERED: TRAZO50TA PO (11:01)
[2018-07-20] MEDS ORDERED: FLUO20CA19 PO ×2 (11:01→17:52)
[2018-07-20] MEDS ORDERED: NYAM10003 TOP (11:01)
[2018-07-20] MEDS ORDERED: BUPR75TA5 PO (11:01)
[2018-07-20] MEDS ORDERED: LEVO75TA4 PO (11:01)
[2018-07-20] MEDS ORDERED: MODA100T13 PO (11:01)
[2018-07-20] MEDS ORDERED: BETA115CR TOP (11:01)
[2018-07-20] MEDS ORDERED: ABIL10TA9 PO (17:44)
[2018-07-20] MEDS ORDERED: BUPR150T5 PO (17:49)
[2018-07-20] MEDS ORDERED: LEVO50TA5 PO (17:55)
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
== END 2018-07-20 12:30 | disposition home or self-care (01) | DRG 885 ==
LOC: M ED 23:31 → M ED INP 07-12 02:36 → M PSY 07-12 03:03
PROVIDERS: ADMIT Psychiatry & Neurology Psychiatry; ATTEND Psychiatry & Neurology Psychiatry
DX: F31.81 Bipolar II disorder (principal); Z68.45 Body mass index [BMI] 70 or greater, adult; Z62.810 Personal history of physical and sexual abuse in childhood; F43.10 Post-traumatic stress disorder, unspecified; F41.1 Generalized anxiety disorder; Z81.1 Family history of alcohol abuse and dependence; Z81.3 Family history of other psychoactive substance abuse and dependence; B35.3 Tinea pedis; G47.30 Sleep apnea, unspecified; E03.9 Hypothyroidism, unspecified; F17.210 Nicotine dependence, cigarettes, uncomplicated; E66.9 Obesity, unspecified; E11.65 Type 2 diabetes mellitus with hyperglycemia; Z63.0 Problems in relationship with spouse or partner; Z91.5 Personal history of self-harm; Z79.84 Long term (current) use of oral hypoglycemic drugs; Z79.899 Other long term (current) drug therapy

== ENCOUNTER 2018-10-12 13:46 | Inpatient (IN) | payer OTHER ==
[~2018-10-12] VITALS: Ht 170.2 cm; Wt 209.0 kg
[~2018-10-12 13:46] MED LIST changes: +ABIL10TA9 PO; +ABIL1TAB11 PO; +ARIP1TAB PO; +BETA115CR TOP; +BUPR150T5 PO; +BUPR75TA5 PO; +CLOTR1CR TOP; +FLUO40CA PO; +HYDR1TAB33 PO; -HYDRO50TAB PO; +LEVO50TA5 PO; +LEVO75TA4 PO; +MODA100T13 PO; +SITA50TAB PO; +TRAZ-252 PO; +TRAZ1TAB10 PO; -TRAZO50TA PO; +VOLT1GEL15 EXT
[2018-10-12 14:48] LABS: BASO # 0.1 10^3/uL (0.0-0.2); BASO % 0.4 % (0.0-1.0); EOS # 0.1 10^3/uL (0.0-0.50); EOS % 0.7 % (0.0-3.0); HEMATOCRIT 45.6 % (36.0-47.0); HEMOGLOBIN 13.1 g/dl (12.0-15.5); LYMPH # 1.3 10^3/uL (1.5-4.5); LYMPH % 9.9 % (24.0-44.0); MEAN CORPUSCULAR HEMOGLOBIN 23.2 pg (27.0-33.0); MEAN CORPUSCULAR HGB CONC 28.7 g/dl (32.0-36.5); MEAN CORPUSCULAR VOLUME 80.7 fl (80.0-96.0); MONO # 0.5 10^3/uL (0.0-0.8); MONO % 3.4 % (0.0-5.0); NEUTROPHILS # 11.4 10^3/uL (1.8-7.7); PLATELET COUNT, AUTOMATED 391 10^3/uL (150-450); RED BLOOD COUNT 5.65 10^6/uL (4.00-5.40); WHITE BLOOD COUNT 13.4 10^3/uL (4.0-10.0)
[2018-10-12 15:00] LABS: ALBUMIN 3.2 GM/DL (3.2-5.2); BILIRUBIN,DIRECT 0.1 MG/DL (0.0-0.2); BILIRUBIN,TOTAL 0.3 MG/DL (0.2-1.0); CALCIUM LEVEL 9.6 MG/DL (8.5-10.1); CREATININE FOR GFR 1.11 MG/DL (0.55-1.30); GLOMERULAR FILTRATION RATE 59.9 (>60); POTASSIUM SERUM 4.3 MEQ/L (3.5-5.1)
[2018-10-12] MEDS ORDERED: KETOROLAC 30 MG/ML VIAL (J1885) IV ONE (15:15)
[2018-10-12] MEDS ORDERED: ONDANSETRON 4MG/2ML VIAL (J2405) IV ONE (15:15)
[2018-10-12 15:19] LABS: ACETONE/KETONE 1.49 MG/DL (<2.81); MAGNESIUM LEVEL 1.9 MG/DL (1.8-2.4); PHOSPHORUS LEVEL 2.4 MG/DL (2.5-4.9)
[2018-10-12 15:53] LABS: HEMOGLOBIN A1c 10.4 %
[2018-10-12] MEDS ORDERED: NS 1,000 ML IV ONE (16:15)
[2018-10-12] MEDS ORDERED: cefTRIAXone SOD 1 GM in D5W MINI-BAG PLUS 50 ML IV ONE (16:45)
[2018-10-12] MEDS ORDERED: FLUO20CA19 PO (17:13)
[2018-10-12] MEDS ORDERED: SYNT75TA PO (17:13)
[2018-10-12] MEDS ORDERED: ARIP1TAB6 PO (17:13)
[2018-10-12] MEDS ORDERED: MODA100T13 PO (17:13)
[2018-10-12] MEDS ORDERED: TRAZ-252 PO (17:13)
[2018-10-12] MEDS ORDERED: BUPR15TASR PO (17:13)
[2018-10-12] MEDS ORDERED: SITA50TAB PO (17:13)
[2018-10-12] MEDS ORDERED: GLUCOSE 4 GM CHEW TABLET PO PRN (17:45)
[2018-10-12] MEDS ORDERED: GLUCAGON FOR INJ 1 MG VIAL (J1610) SC PRN (17:45)
[2018-10-12] MEDS ORDERED: DEXTROSE 50% 50 ML SYRINGE IV PRN (17:45)
[2018-10-12] MEDS ORDERED: IPRATROPIUM 0.5MG/ALBUTEROL 2.5MG INH SOL UD 3ML (DUONEB)(J7620) NEB PRN (17:45)
--- NOTE | 2018-10-12 18:25 | REP ---
HISTORY: Left side flank pain. COMPARISON: None. The lung bases are clear. Detailed limiting ring artifact seen throughout the examination due to the patient's body habitus. Markedly limited evaluation of the solid intraabdominal organs and gallbladder show no gross abnormalities. Limited evaluation of the right kidney show no gross abnormalities. Limited evaluation of the left kidney shows a calcification which appears to be in the left renal pelvis. Additionally, there is mild left-sided hydronephrosis and a possible distal ureterolith on the left measuring 8 mm. Pelvic phleboliths are suspected. No urinary bladder calcifications are present. Markedly limited evaluation of the abdominal aorta and periaortic regions show no gross abnormalities. Marked limited evaluation of the intraabdominal and intrapelvic bowel loops and their mesenteries show no gross abnormalities. There is no gross free fluid or free air. There is no gross osseous abnormality. IMPRESSION: 1. The examination is extremely limited. 2. Suspect proximal and distal left ureteroliths in conjunction with mild left sided hydronephrosis. Electronically Signed by Rafy Martins DO 10/13/2018 10:52 A
[2018-10-12] MEDS: NS 1,000 ML IV SCH (18:27)
[2018-10-12] MEDS: ACETAMINOPHEN TAB 650MG DOSE (2X325MG) PO PRN ×2 (18:31→21:11)
--- NOTE | 2018-10-12 18:51 | HPEPDOC ---
General Date of Admission 10/12/18 Date of Service: Oct 12, 2018 Attending Physician: KENNY ALSTON MD Chief Complaint Back pain,left flank pain. Source: Patient Exam Limitations: No limitations Timing/Duration: Constant Associated Symptoms: Chills, Malaise, Nausea, Vomiting History of Present Illness The patient is a 33-year-old female with h/o diabetes,depression,PTSD,morbid obesity,hypothyroidism,tobacco abuse who presented to ED because of back as she is indicating her left flank.The pain is sharp and started today morning.It does not radiate.Patient is also reporting chills,nausea and vomiting.She is not able to tell if she had fever.Patient was discharged from this hospital in August 10 after being admitted to psych unit for depression with suicidal ideation.In ED,initial vital signs showed Temp 95.9,BP 211/85.Lab showed wbc 13.4,glucose 333,lactic acid 3.0.CT abdm/pelvis was done however the reading by radiology is pending.Patient was diagnosed with acute pyelonephritis and was started on iv ceftriaxone.The hospitalist team was then called for admission.At the time of my evaluation,patient is feeling better than she first arrive in the ED.He left flank has improved. Home Medications Scheduled Aripiprazole (Aripiprazole) 5 Mg Tablet, 5 MG PO DAILY, (Reported) Bupropion HCl (Bupropion HCl Sr) 150 Mg Tab.er.12h, 150 MG PO DAILY, (Reported) Fluoxetine Hcl (Fluoxetine HCl) 20 Mg Capsule, 20 MG PO DAILY, (Reported) Levothyroxine Sodium (Synthroid) 75 Mcg Tablet, 75 MCG PO DAILY, (Reported) TAKES BRAND SYNTHROID AT HOME Sitagliptin (Januvia) 50 Mg Tablet, 50 MG PO DAILY, (Reported) PT STATES SHE HASN'T TAKEN IN A WEEK BEACUSE SHE WAS UNABLE TO GET TO PHARMACY Scheduled PRN Modafinil (Modafinil) 100 Mg Tablet, 100 MG PO DAILY PRN for SLEEP APNEA/DAYTIME SLEEPINESS, (Reported) PT STATES SHE HASN'T TAKEN IN A COUPLE WEEKS BECAUSE SHE WAS UNABLE TO GET TO PHARMACY Trazodone HCl (Trazodone HCl) 50 Mg Tablet, 50 MG PO QHS PRN for SLEEP, (Reported) Allergies Coded Allergies: No Known Allergies (Unverified , 07/11/18) Past Medical History Medical History Morbid obesity COPD Hypothyroidism PTSD Depression with suicidal ideation in the past Diabetes. Surgical History x 1 Family History Mother has diabetes,hypertension,breast ca Father when she was young and does not know much about him. Social History * Smoker: current smoker Alcohol: Denies Drugs: denies Recent Travel/Sick Contacts: Denies: Recent travel, Recent sick contacts Psychosocial History: Anxiety, Depression, PTSD, Suicidal thoughts (admitted in August 10 for depression with suicidal ideations.) A-FIB/CHADSVASC A-FIB History Current/History of A-Fib/PAF?: No Current PO Anticoag Therapy: No Review of Systems Constitutional: Reports: Chills, Malaise Eyes: Denies: Pain, Vision change ENT: Denies: Head Aches, Ear Pain, Dysphagia Skin: Denies: Rash, Lesions, Breakdown Cardiovascular: Denies: Chest Pain, Palpitations, Orthopnea, Paroxysmal Noc. Dyspnea, Lt Headedness Gastrointestinal: Reports: Nausea, Vomiting Genitourinary: Denies: Dysuria, Frequency, Incontinence, Retention Hematologic: Denies: Bruising, Bleeding Excessively Musculoskeletal: Reports: Back Pain, Other Symptoms (left flank pain) Neurological: Denies: Weakness, Numbness, Change in speech, Confusion Psych: Reports: Depression (history) Physical Examination General Exam: Positive: Alert, Cooperative, Other (Morbid abese) Eye Exam: Positive: PERRLA, Conjunctiva & lids normal ENT Exam: Positive: Atraumatic, Mucous membr. moist/pink, Pharynx Normal, Tongue Midline Neck Exam: Positive: Supple, JVD Chest Exam: Positive: Clear to auscultation, Normal air movement Heart Exam: Positive: Rate Normal, Normal S1, Normal S2 Abdomen Exam: Positive: Normal bowel sounds, Soft, Other (obese) Extremity Exam: Positive: Normal pulses; Negative: Clubbing, Cyanosis, Edema Skin Exam: Positive: Nl turgor and temperature; Negative: Breakdown, Lesion Neuro Exam: Positive: Normal Gait, Normal Speech, Cranial Nerves 3-12 NL, Reflexes 2+ Psych Exam: Positive: Mental status NL, Mood NL, Oriented x 3 Other physical findings Back:Left CVA tenderness. Vital Signs Vital Signs Date Time Temp Pulse Resp B/P (MAP) Pulse Ox O2 Delivery O2 Flow Rate FiO2 10/12/18 13:56 10/12/18 13:47 95.9 113 24 90 Room Air Laboratory Data Labs 24H Laboratory Tests 2 10/12/18 14:13: Estimated Mean Plasma Glucose 252H, Hemoglobin A1c 10.4 10/12/18 14:18: Immature Granulocyte % (Auto) 0.6, White Blood Count 13.4H, Red Blood Count 5.65H, Hemoglobin 13.1, Hematocrit 45.6, Mean Corpuscular Volume 80.7, Mean Corpuscular Hemoglobin 23.2L, Mean Corpuscular Hemoglobin Concent 28.7L, Red Cell Distribution Width 19.7H, Platelet Count 391, Neutrophils (%) (Auto) 85.0H, Lymphocytes (%) (Auto) 9.9L, Monocytes (%) (Auto) 3.4, Eosinophils (%) (Auto) 0.7, Basophils (%) (Auto) 0.4, Neutrophils # (Auto) 11.4H, Lymphocytes # (Auto) 1.3L, Monocytes # (Auto) 0.5, Eosinophils # (Auto) 0.1, Basophils # (Auto) 0.1, Nucleated Red Blood Cells % (auto) 0.0, Urine Color SAMEERA, Urine Appearance TURB IDH, Urine pH 7.0, Urine Specific [place] 1.018, Urine Protein 2+H, Urine Glucose (UA) 3+H, Urine Ketones NEGATIVE, Urine Blood NEGATIVE, Urine Nitrite POSITIVEH, Urine Bilirubin NEGATIVE, Urine Urobilinogen 0.2, Urine Leukocyte Esterase 2+H, Urine WBC (Auto) 110H, Urine RBC (Auto) 1, Urine Hyaline Casts (Auto) 0, Urine Bacteria (Auto) 3+H, Urine Squamous Epithelial Cells 40, Urine Mucus (Auto) SMALL, Urine Sperm (Auto) , Anion Gap 7L, Glomerular Filtration Rate 59.9L, Osmolality 299H, Calcium Level 9.6, Phosphorus Level 2.4L, Magnesium Level 1.9, Aspartate Amino Transf (AST/SGOT) 15, Alanine Aminotransferase (ALT/SGPT) 27, Alkaline Phosphatase 172H, Total Bilirubin 0.3, Direct Bilirubin 0.1, Total Protein 8.0, Albumin 3.2, Albumin/Globulin Ratio 0.67L, Lipase 159, B-Hydroxybutyrate 1.49 10/12/18 15:18: Lactic Acid Level 3.0*H CBC/BMP Laboratory Tests 10/12/18 14:18 Red Blood Count 5.65 H, Mean Corpuscular Volume 80.7, Mean Corpuscular Hemoglob in 23.2 L, Mean Corpuscular Hemoglobin Concent 28.7 L, Red Cell Distribution Width 19.7 H, Neutrophils (%) (Auto) 85.0 H, Lymphocytes (%) (Auto) 9.9 L, Monocytes (%) (Auto) 3.4, Eosinophils (%) (Auto) 0.7, Basophils (%) (Auto) 0.4, Neutrophils # (Auto) 11.4 H, Lymphocytes # (Auto) 1.3 L, Monocytes # (Auto) 0.5, Eosinophils # (Auto) 0.1, Basophils # (Auto) 0.1 Microbiology Microbiology 10/12/18 Urine Culture, Received Pending Problems (1) Acute pyelonephritis Status: Acute Problem Text: Ceftriaxone iv daily.IV fluid.Blood cx and Ucx ordered.Adjust atbx based on cultures results.Tylenol prn for fever and pain (2) Uncontrolled diabetes mellitus Problem Text: On SSI.Will add long actin insulin if not controlled.Will order Hgba1c.Discussed compliance.Patient's excessive weight will make her diabetes difficult to control (3) Dehydration Status: Acute Problem Text: Due to nausea,vomiting.Will order zofran prn for nausea.IV fluid (4) Lactic acidosis Status: Acute Problem Text: Likely due to dehydration,uncontrolled diabetes.Patient not looking septic.Will repeat level (5) Uncontrolled hypertension Problem Text: Pt not reporting h/o hypertension.Will order hydralazine prn.Will consider long acting anti-hypertensive meds after being re-assessed in am.BMP,Lipid,TSH ordered (6) Tobacco abuse Status: Chronic Problem Text: Educated about cessation.Will consider nicoderm patch if needed. (7) COPD (chronic obstructive pulmonary disease) Status: Chronic Problem Text: Stable,no wheezing or sob.Duo-neb prn ordered.Educated about smoking cessation (8) Hypothyroidism Status: Chronic Problem Text: Resume routine meds.Will order TSH (9) Morbid obesity with BMI of 60.0-69.9, adult Status: Chronic Problem Text: Educated weight control.Eventually joining weight program in outpatient.Lipid profile,TSH ordered. (10) Depression Status: Acute Plan / VTE VTE Prophylaxis Ordered?: Yes (HEPARIN SC 5000 units sc q 8 hrs) Plan Plan Plan of care as above was discussed with patient. Disposition To be determined KENNY ALSTON MD Oct 12, 2018 18:51
[2018-10-12] MEDS ORDERED: hydrALAZINE INJ 20 MG/ML VIAL IV PRN (19:00)
[2018-10-12] MEDS: HumaLOG INSULIN (NovoLOG) PER UNIT SC SCH (21:36)
[2018-10-12] MEDS: HEPARIN SOD (PORCINE) 5000 UNITS/ML VIAL SC SCH (21:48)
[2018-10-13 00:45] VITALS: BP 140/76
[2018-10-13] MEDS: NS 1,000 ML IV SCH ×2 (01:19→21:00)
[2018-10-13] MEDS: PERCOCET 5MG/325MG TAB PO PRN ×4 (01:19→21:21)
[2018-10-13] MEDS: HEPARIN SOD (PORCINE) 5000 UNITS/ML VIAL SC SCH ×3 (05:53→21:01)
[2018-10-13] MEDS: ACETAMINOPHEN TAB 650MG DOSE (2X325MG) PO PRN ×2 (05:53→23:32)
[2018-10-13 06:00] VITALS: BP 132/70
[2018-10-13 06:04] LABS: HEMATOCRIT 39.5 % (36.0-47.0); HEMOGLOBIN 11.3 g/dl (12.0-15.5); MEAN CORPUSCULAR HEMOGLOBIN 22.8 pg (27.0-33.0); MEAN CORPUSCULAR HGB CONC 28.6 g/dl (32.0-36.5); MEAN CORPUSCULAR VOLUME 79.8 fl (80.0-96.0); PLATELET COUNT, AUTOMATED 321 10^3/uL (150-450); RED BLOOD COUNT 4.95 10^6/uL (4.00-5.40); WHITE BLOOD COUNT 14.4 10^3/uL (4.0-10.0)
[2018-10-13 06:39] LABS: CALCIUM LEVEL 8.3 MG/DL (8.5-10.1); CHOLESTEROL RISK RATIO 5.185 (<5); CREATININE FOR GFR 1.15 MG/DL (0.55-1.30); GLOMERULAR FILTRATION RATE 57.5 (>60); POTASSIUM SERUM 4.2 MEQ/L (3.5-5.1); THYROID STIMULATING HORMONE 1.52 uIU/ML (0.358-3.740)
[2018-10-13 06:49] LABS: HEMOGLOBIN A1c 10.6 %
[2018-10-13] MEDS: HumaLOG INSULIN (NovoLOG) PER UNIT SC SCH ×5 (08:06→21:08)
[2018-10-13] MEDS: **hydrALAZINE** 50 MG TAB PO SCH ×3 (08:09→21:00)
[2018-10-13] MEDS ORDERED: cefTRIAXone SOD 2 GM in D5W MINI-BAG PLUS 50 ML IV SCH (09:00)
--- NOTE | 2018-10-13 13:44 | IPNPDOC ---
Subjective Date Seen The patient was seen on 10/13/18. Subjective Chief Complaint/HPI The patient is a 33-year-old female with h/o diabetes,depression,PTSD,morbid obesity,hypothyroidism,tobacco abuse who presented to ED because of back as she is indicating her left flank.The pain is sharp and started today morning.It does not radiate.Patient is also reporting chills,nausea and vomiting.She is not able to tell if she had fever.Patient was discharged from this hospital in August 10 after being admitted to psych unit for depression with suicidal ideation.In ED,initial vital signs showed Temp 95.9,BP 211/85.Lab showed wbc 13.4,glucose 333,lactic acid 3.0.CT abdm/pelvis was done however the reading by radiology is pending.Patient was diagnosed with acute pyelonephritis and was started on iv ceftriaxone.The hospitalist team was then called for admission.At the time of my evaluation,patient is feeling better than she first arrive in the ED.He left flank has improved. Today 10/13,patient says that she is feeling better,less flank pain.No fever,no chills.Nurse reporting that patient's O2sat at night was in the lower 90's and was put on 2 liters [place] O2.Patient has sleep apnea and she is supposed to be on CPAP but does not use it. Objective Physical Examination General Exam: Positive: Alert, Cooperative, Other (Morbid abese) Eye Exam: Positive: PERRLA, Conjunctiva & lids normal ENT Exam: Positive: Atraumatic, Mucous membr. moist/pink, Pharynx Normal, Tongue Midline Neck Exam: Positive: Supple, JVD Chest Exam: Positive: Clear to auscultation, Normal air movement Heart Exam: Positive: Rate Normal, Normal S1, Normal S2 Abdomen Exam: Positive: Normal bowel sounds, Soft, Tenderness (mild left flank pain), Other (obese) Extremity Exam: Positive: Normal pulses; Negative: Clubbing, Cyanosis, Edema Skin Exam: Positive: Nl turgor and temperature; Negative: Breakdown, Lesion Neuro Exam: Positive: Normal Gait, Normal Speech, Cranial Nerves 3-12 NL, Reflexes 2+ Psych Exam: Positive: Mental status NL, Mood NL, Oriented x 3 Assessment /Plan Problems (1) Acute pyelonephritis Status: Acute Problem Text: Ceftriaxone iv daily.IV fluid.Blood cx and Ucx results pend ing.Adjust atbx based on cultures results.Tylenol prn for fever and pain (2) Uncontrolled diabetes mellitus Problem Text: On SSI.Will add levemir since blood sugar not controlled.Hgba1c 10.6.Discussed compliance.Patient's excessive weight will make her diabetes difficult to control (3) Dehydration Status: Acute Problem Text: Due to nausea,vomiting.On zofran prn for nausea which is now improved.IV fluid (4) Lactic acidosis Status: Acute Problem Text: Resolved.Likely due to dehydration,uncontrolled diabetes.Patient did not look septic. (5) Uncontrolled hypertension Problem Text: BP was elevated in ED.Pt not reporting h/o hypertension and blood pressure has been normal since admission,126/89 today. (6) Tobacco abuse Status: Chronic Problem Text: Educated about cessation.Will consider nicoderm patch if needed. (7) COPD (chronic obstructive pulmonary disease) Status: Chronic Problem Text: Stable,no wheezing or sob.Duo-neb prn ordered.Educated about smoking cessation (8) Hypothyroidism Status: Chronic Problem Text: On synthroid 75 mcg/daily.TSH nl (9) Morbid obesity with BMI of 60.0-69.9, adult Status: Chronic Problem Text: Educated weight control.Eventually joining weight program in out patient.Lipid profile,TSH ordered. (10) Depression Status: Acute Problem Text: Resume routine meds (11) FREDO (obstructive sleep apnea) Problem Text: Pt is supposed to be on CPAP at home but does not use it.O2sat in lower 90's at night.She is now on 2 liters NC.Will continue to monitor Plan/VTE VTE Prophylaxis Ordered?: Yes (HEPARIN SC 5000 units sc q 8 hrs) Plan IVF: Continue (as it is) Disposition To be determine,patient still requiring inpatient for now. VS, I&O, 24H, Fishbone Vital Signs/I&O Vital Signs Date Time Temp Pulse Resp B/P (MAP) Pulse Ox O2 Delivery O2 Flow Rate FiO2 10/13/18 09:00 2.0 10/13/18 08:36 18 10/13/18 08:09 126/89 10/13/18 06:00 98.0 117 92 10/12/18 22:40 Nasal Cannula I&O- Last 24 Hours up to 6 AM 10/13/18 06:00 Intake Total 1567.5 ml Output Total 500 ml Balance 1067.5 ml Laboratory Data 24H LABS Laboratory Tests 2 10/12/18 14:13: Estimated Mean Plasma Glucose 252H, Hemoglobin A1c 10.4 10/12/18 14:18: Immature Granulocyte % (Auto) 0.6, White Blood Count 13.4H, Red Blood Count 5.65H, Hemoglobin 13.1, Hematocrit 45.6, Mean Corpuscular Volume 80.7, Mean Corpuscular Hemoglobin 23.2L, Mean Corpuscular Hemoglobin Concent 28.7L, Red Cell Distribution Width 19.7H, Platelet Count 391, Neutrophils (%) (Auto) 85.0H, Lymphocytes (%) (Auto) 9.9L, Monocytes (%) (Auto) 3.4, Eosinophils (%) (Auto) 0.7, Basophils (%) (Auto) 0.4, Neutrophils # (Auto) 11.4H, Lymphocytes # (Auto) 1.3L, Monocytes # (Auto) 0.5, Eosinophils # (Auto) 0.1, Basophils # (Auto) 0.1, Nucleated Red Blood Cells % (auto) 0.0, Urine Color SAMEERA, Urine Appearance TURB IDH, Urine pH 7.0, Urine Specific [place] 1.018, Urine Protein 2+H, Urine Glucose (UA) 3+H, Urine Ketones NEGATIVE, Urine Blood NEGATIVE, Urine Nitrite POSITIVEH, Urine Bilirubin NEGATIVE, Urine Urobilinogen 0.2, Urine Leukocyte Esterase 2+H, Urine WBC (Auto) 110H, Urine RBC (Auto) 1, Urine Hyaline Casts (Auto) 0, Urine Bacteria (Auto) 3+H, Urine Squamous Epithelial Cells 40, Urine Mucus (Auto) SMALL, Urine Sperm (Auto) , Anion Gap 7L, Glomerular Filtration Rate 59.9L, Osmolality 299H, Calcium Level 9.6, Phosphorus Level 2.4L, Magnesium Level 1.9, Aspartate Amino Transf (AST/SGOT) 15, Alanine Aminotransferase (ALT/SGPT) 27, Alkaline Phosphatase 172H, Total Bilirubin 0.3, Direct Bilirubin 0.1, Total Protein 8.0, Albumin 3.2, Albumin/Globulin Ratio 0.67L, Lipase 159, B-Hydroxybutyrate 1.49 10/12/18 15:18: Lactic Acid Level 3.0*H 10/12/18 19:40: Lactic Acid Followup at 4 Hours 3.0*H 10/12/18 21:14: Bedside Glucose (Misc Panel) 251H 10/12/18 21:59: Lactic Acid Level 1.9 10/13/18 05:20: Nucleated Red Blood Cells % (auto) 0.0, Anion Gap 6L, Glomerular Filtration Rate 57.5L, Estimated Mean Plasma Glucose 258H, Hemoglobin A1c 10.6, Calcium Level 8.3L, Triglycerides Level 101, LDL Cholesterol 93, Total Cholesterol 140, Non- HDL Cholesterol (LDL + VLDL) 113, Total HDL Cholesterol 27L, Cholesterol/HDL Ratio 5.185H, Thyroid Stimulating Hormone (TSH) 1.520 10/13/18 11:37: Bedside Glucose (Misc Panel) 300H CBC/BMP Laboratory Tests 10/12/18 14:18 Red Blood Count 5.65 H, Mean Corpuscular Volume 80.7, Mean Corpuscular Hemoglobin 23.2 L, Mean Corpuscular Hemoglobin Concent 28.7 L, Red Cell Distribution Width 19.7 H, Neutrophils (%) (Auto) 85.0 H, Lymphocytes (%) (Auto) 9.9 L, Monocytes (%) (Auto) 3.4, Eosinophils (%) (Auto) 0.7, Basophils (%) (Au to) 0.4, Neutrophils # (Auto) 11.4 H, Lymphocytes # (Auto) 1.3 L, Monocytes # (Auto) 0.5, Eosinophils # (Auto) 0.1, Basophils # (Auto) 0.1 10/13/18 05:20 Red Blood Count 4.95, Mean Corpuscular Volume 79.8 L, Mean Corpuscular Hemoglobin 22.8 L, Mean Corpuscular Hemoglobin Concent 28.6 L, Red Cell Distribution Width 19.9 H Microbiology Microbiology 10/12/18 Blood Culture, Received Pending 10/12/18 Urine Culture, Received Pending KENNY ALSTON MD Oct 13, 2018 13:44
[2018-10-13 14:00] VITALS: BP 122/86
[2018-10-13] MEDS: LEVOTHYROXINE 75MCG TABLET (0.075MG) PO SCH (14:49)
[2018-10-13] MEDS: FLUoxetine 20 MG CAP PO SCH (14:49)
[2018-10-13] MEDS: ONDANSETRON 4MG/2ML VIAL (J2405) IV PRN (14:59)
--- NOTE | 2018-10-13 16:33 | REP ---
Renal ultrasound: The kidneys are normal size. The right kidney measures 13.16 x 4 x 5.3 cm. Left kidney measures 14 7 x 6.7 x 6.6 cm. Renal cortical echogenicity is normal bilaterally. There are no renal calculi. There are no solid or cystic renal masses. There is no hydronephrosis. With color Doppler assessment there are bilateral ureteral jets into the bladder. The study is technically difficult because of patient body habitus. The bladder cannot be optimally evaluated. Impression: There is no hydronephrosis. No renal calculi are identified. No solid or cystic renal masses are identified. With color Doppler assessment there are bilateral ureteral jets into the bladder. Electronically Signed by Joseph Bennett MD 10/13/2018 04:25 P
[2018-10-13] MEDS: buPROPion **SR TABLET** (ZYBAN) 150MG PO SCH (17:46)
[2018-10-13] MEDS: NICOTINE 21MG/24HR 1 EA TRANSDERMAL TD SCH (17:46)
[2018-10-13 22:00] VITALS: BP 155/74
[2018-10-14] MEDS ORDERED: NS 1,000 ML IV ONE
[2018-10-14] MEDS: PERCOCET 5MG/325MG TAB PO PRN ×3 (04:26→21:01)
[2018-10-14] MEDS: LEVOTHYROXINE 75MCG TABLET (0.075MG) PO SCH (05:28)
[2018-10-14] MEDS: HEPARIN SOD (PORCINE) 5000 UNITS/ML VIAL SC SCH ×3 (05:28→21:01)
[2018-10-14 06:40] LABS: HEMATOCRIT 37.9 % (36.0-47.0); HEMOGLOBIN 10.8 g/dl (12.0-15.5); MEAN CORPUSCULAR HGB CONC 28.5 g/dl (32.0-36.5); MEAN CORPUSCULAR VOLUME 80.6 fl (80.0-96.0); PLATELET COUNT, AUTOMATED 273 10^3/uL (150-450); WHITE BLOOD COUNT 13.8 10^3/uL (4.0-10.0)
[2018-10-14 07:08] LABS: CALCIUM LEVEL 8.5 MG/DL (8.5-10.1); CREATININE FOR GFR 1.13 MG/DL (0.55-1.30); GLOMERULAR FILTRATION RATE 58.7 (>60); POTASSIUM SERUM 3.9 MEQ/L (3.5-5.1)
[2018-10-14] MEDS ORDERED: amLODIPine 10 MG TAB PO SCH (09:00)
--- NOTE | 2018-10-14 09:15 | ECGEPIP ---
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
[2018-10-14] MEDS: FLUoxetine 20 MG CAP PO SCH (09:21)
[2018-10-14] MEDS: METOPROLOL SUCC *XL* 25MG TAB (TopROL *XL*) PO SCH ×2 (09:21→21:00)
[2018-10-14] MEDS: buPROPion **SR TABLET** (ZYBAN) 150MG PO SCH (09:21)
[2018-10-14] MEDS: NS 1,000 ML IV SCH ×2 (09:22→23:11)
[2018-10-14] MEDS: LevoFLOXacin IV 750 MG in IV 1 EA IV SCH (09:22)
[2018-10-14] MEDS: NICOTINE 21MG/24HR 1 EA TRANSDERMAL TD SCH (09:22)
[2018-10-14] MEDS: HumaLOG INSULIN (NovoLOG) PER UNIT SC SCH ×4 (09:23→20:55)
[2018-10-14 14:00] VITALS: BP 110/75
--- NOTE | 2018-10-14 16:11 | IPNPDOC ---
Subjective Date Seen The patient was seen on 10/14/18. Subjective Chief Complaint/HPI The patient is a 33-year-old female with h/o diabetes,depression,PTSD,morbid obesity,hypothyroidism,tobacco abuse who presented to ED because of back as she is indicating her left flank.The pain is sharp and started today morning.It does not radiate.Patient is also reporting chills,nausea and vomiting.She is not able to tell if she had fever.Patient was discharged from this hospital in August 10 after being admitted to psych unit for depression with suicidal ideation.In ED,initial vital signs showed Temp 95.9,BP 211/85.Lab showed wbc 13.4,glucose 333,lactic acid 3.0.CT abdm/pelvis was done however the reading by radiology is pending.Patient was diagnosed with acute pyelonephritis and was started on iv ceftriaxone.The hospitalist team was then called for admission.At the time of my evaluation,patient is feeling better than she first arrive in the ED.He left flank has improved. Today 10/14,patient says that she is feeling better,less flank pain.No fever,no chills.Nurse reporting that patient's O2sat has been dropping in the 90's mostly at night and now she is on 2 liters NC O2.Patient has sleep apnea and she is supposed to be on CPAP but does not use it.Also nurse reporting that Ucx grew E.coli esbl.Pt has been tachycardic. General: Reports: Fatigue Constitutional: Reports: Malaise, Weakness ENT: Denies: Head Aches, Ear Pain, Dysphagia Pulmonary: Reports: Other Symptoms (short of breath while working around) Cardiovascular: Denies: Chest Pain, Palpitations, Orthopnea, Paroxysmal Noc. Dyspnea, Lt Headedness Gastrointestinal: Denies: Nausea, Vomiting, Abdominal Pain, Diarrhea, Constipation Musculoskeletal: Reports: Back Pain Neurological: Denies: Weakness, Numbness, Change in speech, Confusion Psych: Reports: Mood Normal Objective Physical Examination General Exam: Positive: Alert, Cooperative, Other (Morbid abese) Eye Exam: Positive: PERRLA, Conjunctiva & lids normal ENT Exam: Positive: Atraumatic, Mucous membr. moist/pink, Pharynx Normal, Tongue Midline Neck Exam: Positive: Supple, JVD Chest Exam: Positive: Clear to auscultation, Normal air movement Heart Exam: Positive: Tachycardic, Normal S1, Normal S2 Abdomen Exam: Positive: Normal bowel sounds, Soft, Tenderness (mild left flank pain), Other (obese) Extremity Exam: Positive: Normal pulses; Negative: Clubbing, Cyanosis, Edema Skin Exam: Positive: Nl turgor and temperature; Negative: Breakdown, Lesion Neuro Exam: Positive: Normal Gait, Normal Speech, Cranial Nerves 3-12 NL, Reflexes 2+ Psych Exam: Positive: Mental status NL, Mood NL, Oriented x 3 Assessment /Plan Problems (1) Acute pyelonephritis Status: Acute Problem Text: Initially on Ceftriaxone iv daily.Ucx grew E.coli esbl.Started today on levaquin.Blood cx NGTD.Continue IV fluid.Tylenol prn for fever and pain.Consider po levaquin if patient's wbc nl and patient afebrile in the next 24 hrs. (2) Uncontrolled diabetes mellitus Problem Text: On SSI.Will add levemir since blood sugar not controlled.Hgba1c 10.6.Discussed compliance.Patient's excessive weight will make her diabetes difficult to control (3) Hypoxia Problem Text: Mostly at night.Multifactorial including sleep apnea,copd,morbid obesity.Patient now on oxygen.She was supposed to be on CPAP after sleep study however never wanted to use it and never pick it up.Apparently patient has benefits from the and this will be taken care on outpatient.Patient strongly advised to comply with the CPAP. (4) FREDO (obstructive sleep apnea) Status: Chronic Problem Text: Pt is supposed to be on CPAP at home but does not use it.O2sat in lower 90's at night.She is now on 2 liters NC.Will continue to monitor (5) Dehydration Status: Acute Problem Text: Due to nausea,vomiting.On zofran prn for nausea which is now improved.IV fluid. (6) Lactic acidosis Status: Acute Problem Text: Resolved.Likely due to dehydration,uncontrolled diabetes.Patient did not look septic. (7) COPD (chronic obstructive pulmonary disease) Status: Chronic Problem Text: Stable,no wheezing or sob.Duo-neb prn ordered.Educated about smok ing cessation (8) Tobacco abuse Status: Chronic Problem Text: Educated about cessation.On nicoderm patch (9) Uncontrolled hypertension Problem Text: BP was elevated in ED.Pt not reporting h/o hypertension and blood pressure has been normal since admission,110/75 today.Metoprolol was ordered since patient was tachycardic (10) Hypothyroidism Status: Chronic Problem Text: On synthroid 75 mcg/daily.TSH nl (11) Morbid obesity with BMI of 60.0-69.9, adult Status: Chronic Problem Text: Educ[facility] weight control[facility],TSH ordered. (12) Depression Status: Chronic Problem Text: Resume routine meds Plan/VTE VTE Prophylaxis Ordered?: Yes (HEPARIN SC 5000 units sc q 8 hrs) Plan IVF: Continue (as it is) Disposition 1-2 days VS, I&O, 24H, Fishbone Vital Signs/I&O Vital Signs Date Time Temp Pulse Resp B/P (MAP) Pulse Ox O2 Delivery O2 Flow Rate FiO2 10/14/18 14:00 99.0 103 18 110/75 (87) 90 3.0 10/12/18 22:40 Nasal Cannula I&O- Last 24 Hours up to 6 AM 10/14/18 06:00 Intake Total 4275 ml Output Total 1750 ml Balance 2525 ml Laboratory Data 24H LABS Laboratory Tests 2 10/13/18 16:33: Bedside Glucose (Misc Panel) 281H 10/13/18 20:01: Bedside Glucose (Misc Panel) 310H 10/14/18 05:41: Nucleated Red Blood Cells % (auto) 0.0, Anion Gap 6L, Glomerular Filtration Rate 58.7L, Blood Urea Nitrogen 8, Creatinine 1.13, Sodium Level 135L, Potassium Level 3.9, Chloride Level 96L, Carbon Dioxide Level 33H, Calcium Level 8.5 10/14/18 11:48: Bedside Glucose (Misc Panel) 260H CBC/BMP Laboratory Tests 10/14/18 05:41 Red Blood Count 4.70, Mean Corpuscular Volume 80.6, Mean Corpuscular Hemoglobin 23.0 L, Mean Corpuscular Hemoglobin Concent 28.5 L, Red Cell Distribution Width 19.9 H, Calcium Level 8.5 Microbiology Microbiology 10/12/18 Blood Culture - Preliminary, Resulted No growth after 24 hours . All specim... 10/12/18 Urine Culture - Preliminary, Resulted E.coli Esbl KENNY ALSTON MD Oct 14, 2018 16:11
[2018-10-14 16:45] LABS: HEMATOCRIT 37.6 % (36.0-47.0); HEMOGLOBIN 10.7 g/dl (12.0-15.5); MEAN CORPUSCULAR HEMOGLOBIN 22.9 pg (27.0-33.0); MEAN CORPUSCULAR HGB CONC 28.5 g/dl (32.0-36.5); MEAN CORPUSCULAR VOLUME 80.3 fl (80.0-96.0); PLATELET COUNT, AUTOMATED 267 10^3/uL (150-450); RED BLOOD COUNT 4.68 10^6/uL (4.00-5.40); WHITE BLOOD COUNT 14.3 10^3/uL (4.0-10.0)
[2018-10-14 17:02] LABS: BLOOD UREA NITROGEN 9 MG/DL (7-18); CALCIUM LEVEL 8.7 MG/DL (8.5-10.1); CARBON DIOXIDE LEVEL 32 MEQ/L (21-32); CHLORIDE LEVEL 94 MEQ/L (98-107); CREATININE FOR GFR 1.06 MG/DL (0.55-1.30); GLOMERULAR FILTRATION RATE > 60.0 (>60); GLUCOSE, FASTING 227 MG/DL (70-100); POTASSIUM SERUM 4.2 MEQ/L (3.5-5.1); SODIUM LEVEL 132 MEQ/L (136-145)
[2018-10-14] MEDS: LEVEMIR (INSULIN DETEMIR) 1 UNITS/0.01ML SC SCH (21:00)
[2018-10-14 22:00] VITALS: BP 132/80
[2018-10-15] MEDS: LEVOTHYROXINE 75MCG TABLET (0.075MG) PO SCH (05:36)
[2018-10-15] MEDS: PERCOCET 5MG/325MG TAB PO PRN ×2 (05:37→11:45)
[2018-10-15] MEDS: HEPARIN SOD (PORCINE) 5000 UNITS/ML VIAL SC SCH ×3 (05:37→21:19)
[2018-10-15 06:00] VITALS: BP 147/77
[2018-10-15] MEDS: NICOTINE 21MG/24HR 1 EA TRANSDERMAL TD SCH (09:33)
[2018-10-15] MEDS: LevoFLOXacin IV 750 MG in IV 1 EA IV SCH (09:33)
[2018-10-15] MEDS: FLUoxetine 20 MG CAP PO SCH (09:34)
[2018-10-15] MEDS: HumaLOG INSULIN (NovoLOG) PER UNIT SC SCH ×4 (09:34→20:33)
[2018-10-15] MEDS: METOPROLOL SUCC *XL* 25MG TAB (TopROL *XL*) PO SCH ×2 (09:34→21:21)
[2018-10-15] MEDS: buPROPion **SR TABLET** (ZYBAN) 150MG PO SCH (09:35)
--- NOTE | 2018-10-15 12:11 | IPN ---
DATE: 10/15/2018 Ms. Aislinn Dickens is being treated for extended-spectrum beta-lactamase (ESBL) positive Escherichia (E) coli urinary tract infection (UTI). She is on Levaquin. She has diabetes under por control. She does not tolerate metformin as it causes intolerable gastrointestinal (GI) upset, so she is only on Januvia, which is a curious choice for monotherapy. Hemoglobin A1c is 10%. PHYSICAL EXAM: Afebrile. Vital signs stable. Body mass index (BMI) is approximately 60. Lungs: Clear. Heart: Regular rhythm. Abdomen: Obese, nontender, no masses. No costovertebral angle tenderness. No peripheral edema. LABORATORY: White count 14.3, hemoglobin 10.7, platelets 267, electrolytes unremarkable. IMPRESSION: 1. E. coli urinary tract infection. Continue Levaquin. She is on day #2 of this, probably put her on an oral antibiotic after tomorrow's IV dose. 2. Diabetes. Poor control. She is currently on sliding scale insulin with detemir as a basal insulin. I discussed her diabetic control, hemoglobin A1c elevation and need for insulin therapy upon discharge. Hopefully after a few months of better diabetic control and pancreatic rest, she might respond to an oral agent. Januvia is an unusual choice for monotherapy in such an obese patient. She will be better served by Victoza or one of the other injectables, probably in combination with insulin initially. She is moving to [place] on Wednesday, so her new primary care provider will have to address her ongoing diabetic problems.
[2018-10-15] MEDS: NS 1,000 ML IV SCH (12:26)
[2018-10-15 14:00] VITALS: BP 144/96
[2018-10-15] MEDS ORDERED: ACETAMINOPHEN 500 MG TAB PO PRN (20:30)
[2018-10-15 20:31] LABS: ABG BASE EXCESS 2.5 (-2.0-2.0); ABG HCO3 30.8 MEQ/L (22.0-26.0); ABG O2 SATURATION 78.2 % (95.0-99.0); ABG STANDARD HCO3 26.3 MEQ/L (22.0-26.0); ABG TOTAL CO2 32.8 MEQ/L (22.0-29.0); ABG pH (ARTERIAL) 7.283 UNITS (7.350-7.450)
[2018-10-15 20:32] LABS: ABG PARTIAL PRESSURE CO2 66.6 mmHg (35.0-45.0); ABG PARTIAL PRESSURE O2 46.6 mmHg (75.0-100.0)
[2018-10-15] MEDS ORDERED: IPRATROPIUM 0.5MG/ALBUTEROL 2.5MG INH SOL UD 3ML (DUONEB)(J7620) NEB ONE (21:00)
--- NOTE | 2018-10-15 21:18 | IPNPDOC ---
Text Note Date of Service The patient was seen on 10/15/18. NOTE called urgently to bedside as her spo2 was 78% with 2 liters. Patient was complaining of SOB, chills and feeling extremely cold. Rectal temp was 100.8. she was visibly shivering. She was alert, oriented x 3. She was tachycardic to 120. I reviewed her chart and labs from this afternoon. in view of new fever spike ordered blood cultures and lactate. CXR and ABG. Nebs. Urine with ESBL E coli antibiotic escalated from levofloxacin to meropenem. Maintain oxygenation of 88% to 90% ABG showed 7.286/66.6/46.[address] Matias will repeat ABG in 1 hour if worsens will move to ICU. VS,Fishbone, I+O VS, Fishbone, I+O Vital Signs Date Time Temp Pulse Resp B/P (MAP) Pulse Ox O2 Delivery O2 Flow Rate FiO2 10/15/18 14:00 97.8 88 18 144/96 (112) 93 2.0 10/12/18 22:40 Nasal Cannula I&O- Last 24 Hours up to 6 AM 10/15/18 06:00 Intake Total 2563 ml Output Total 1500 ml Balance 1063 ml TODD LYON MD Oct 15, 2018 21:18
[2018-10-15] MEDS: LEVEMIR (INSULIN DETEMIR) 1 UNITS/0.01ML SC SCH (21:19)
[2018-10-15 21:21] VITALS: BP 150/72
[2018-10-15 21:27] LABS: ABG BASE EXCESS 5.9 (-2.0-2.0); ABG HCO3 33.6 MEQ/L (22.0-26.0); ABG O2 SATURATION 99.6 % (95.0-99.0); ABG STANDARD HCO3 29.8 MEQ/L (22.0-26.0); ABG TOTAL CO2 35.6 MEQ/L (22.0-29.0); ABG pH (ARTERIAL) 7.327 UNITS (7.350-7.450)
[2018-10-15 21:29] LABS: ABG PARTIAL PRESSURE CO2 65.6 mmHg (35.0-45.0)
[2018-10-15] MEDS ORDERED: MEROPENEM INJ 2 GM in NS 100 ML IV ONE (21:30)
[2018-10-15] MEDS: ONDANSETRON 4MG/2ML VIAL (J2405) IV PRN (21:43)
[2018-10-15 22:00] VITALS: BP 132/74
[2018-10-16] VITALS (8 sets, daily range): BP systolic 99–117; BP diastolic 51–69; O2SAT 96
[2018-10-16] MEDS: PERCOCET 5MG/325MG TAB PO PRN ×2 (01:10→23:34)
[2018-10-16] MEDS: NS 1,000 ML IV SCH (01:45)
[2018-10-16 01:46] LABS: ABG BASE EXCESS 6.1 (-2.0-2.0); ABG HCO3 34.7 MEQ/L (22.0-26.0); ABG O2 SATURATION 98.7 % (95.0-99.0); ABG PARTIAL PRESSURE CO2 73.6 mmHg (35.0-45.0); ABG TOTAL CO2 36.9 MEQ/L (22.0-29.0); ABG pH (ARTERIAL) 7.291 UNITS (7.350-7.450)
--- NOTE | 2018-10-16 03:45 | REPVR ---
EXAM: XR Chest, 1 View EXAM DATE/TIME: 10/16/18 (2:41am) CLINICAL HISTORY: 33 year old female. Desaturation. TECHNIQUE: Imaging protocol: Portable CXR, 1 view COMPARISON: Chest films of 07/09/27 FINDINGS: Lungs: Unremarkable. No consolidation. Pleural space: Unremarkable. No pleural effusions. No pneumothorax. Heart/Mediastinum: Unremarkable. No cardiomegaly. Bones/joints: Unremarkable. IMPRESSION: No acute findings. The lung lang remain clear. Electronically signed by: Martina Brady On 10/16/2018 03:44:49 AM
[2018-10-16 04:44] LABS: BASO % 0.3 % (0.0-1.0); EOS % 0.3 % (0.0-3.0); HEMATOCRIT 34.1 % (36.0-47.0); HEMOGLOBIN 9.7 g/dl (12.0-15.5); LYMPH # 0.5 10^3/uL (1.5-4.5); LYMPH % 4.3 % (24.0-44.0); MEAN CORPUSCULAR HEMOGLOBIN 22.7 pg (27.0-33.0); MEAN CORPUSCULAR HGB CONC 28.4 g/dl (32.0-36.5); MEAN CORPUSCULAR VOLUME 79.7 fl (80.0-96.0); MONO # 0.5 10^3/uL (0.0-0.8); MONO % 4.8 % (0.0-5.0); NEUTROPHILS # 9.8 10^3/uL (1.8-7.7); NEUTROPHILS % 89.5 % (36.0-66.0); PLATELET COUNT, AUTOMATED 234 10^3/uL (150-450); RED BLOOD COUNT 4.28 10^6/uL (4.00-5.40); WHITE BLOOD COUNT 10.9 10^3/uL (4.0-10.0)
[2018-10-16 04:44] LABS: ABG BASE EXCESS 3.3 (-2.0-2.0); ABG HCO3 31.3 MEQ/L (22.0-26.0); ABG O2 SATURATION 99.5 % (95.0-99.0); ABG PARTIAL PRESSURE CO2 66.8 mmHg (35.0-45.0); ABG PARTIAL PRESSURE O2 191.4 mmHg (75.0-100.0); ABG STANDARD HCO3 27.4 MEQ/L (22.0-26.0); ABG TOTAL CO2 33.3 MEQ/L (22.0-29.0); ABG pH (ARTERIAL) 7.288 UNITS (7.350-7.450)
[2018-10-16 05:08] LABS: BLOOD UREA NITROGEN 10 MG/DL (7-18); CALCIUM LEVEL 8.8 MG/DL (8.5-10.1); CARBON DIOXIDE LEVEL 34 MEQ/L (21-32); CHLORIDE LEVEL 97 MEQ/L (98-107); CREATININE FOR GFR 0.97 MG/DL (0.55-1.30); GLOMERULAR FILTRATION RATE > 60.0 (>60); GLUCOSE, FASTING 209 MG/DL (70-100); POTASSIUM SERUM 4.2 MEQ/L (3.5-5.1); SODIUM LEVEL 135 MEQ/L (136-145)
[2018-10-16] MEDS: MEROPENEM INJ 1 GM in IV 1 EA IV SCH ×3 (06:17→21:11)
[2018-10-16] MEDS: LEVOTHYROXINE 75MCG TABLET (0.075MG) PO SCH (06:17)
[2018-10-16] MEDS: HEPARIN SOD (PORCINE) 5000 UNITS/ML VIAL SC SCH ×3 (06:17→21:11)
[2018-10-16] MEDS: HumaLOG INSULIN (NovoLOG) PER UNIT SC SCH ×4 (07:30→21:00)
[2018-10-16 09:12] LABS: ABG BASE EXCESS 7.2 (-2.0-2.0); ABG HCO3 36.8 MEQ/L (22.0-26.0); ABG O2 SATURATION 97.1 % (95.0-99.0); ABG PARTIAL PRESSURE CO2 85.7 mmHg (35.0-45.0); ABG PARTIAL PRESSURE O2 96.7 mmHg (75.0-100.0); ABG TOTAL CO2 39.5 MEQ/L (22.0-29.0); ABG pH (ARTERIAL) 7.251 UNITS (7.350-7.450)
[2018-10-16] MEDS: NICOTINE 21MG/24HR 1 EA TRANSDERMAL TD SCH (10:19)
[2018-10-16] MEDS: buPROPion **SR TABLET** (ZYBAN) 150MG PO SCH (10:20)
[2018-10-16] MEDS: NYSTATIN 100,000 UNITS/GM TOPICAL PWD 15 GM TOP SCH ×2 (10:20→21:11)
[2018-10-16] MEDS: FLUoxetine 20 MG CAP PO SCH (10:20)
[2018-10-16 11:09] LABS: ABG HCO3 35.8 MEQ/L (22.0-26.0); ABG O2 SATURATION 98.4 % (95.0-99.0); ABG PARTIAL PRESSURE O2 116.3 mmHg (75.0-100.0); ABG STANDARD HCO3 30.9 MEQ/L (22.0-26.0); ABG TOTAL CO2 38.2 MEQ/L (22.0-29.0); ABG pH (ARTERIAL) 7.283 UNITS (7.350-7.450)
[2018-10-16 11:10] LABS: ABG PARTIAL PRESSURE CO2 77.4 mmHg (35.0-45.0)
--- NOTE | 2018-10-16 12:28 | IPN ---
DATE OF SERVICE: 10/16/2018 Aislinn was transferred to intensive care unit (ICU) last night for respiratory decline. She was found short of breath. Temperature 100.8. Respiratory acidosis. Today she has pressure support mask on but she indicates she is feeling better, less short of breath. PHYSICAL EXAMINATION: 103/56, oxygen saturation 96%, 50% flow. General appearance: Morbidly obese, lying in bed with a pressure support mask on. Lungs: Decreased breath sounds but clear. Heart: Regular rhythm. Abdomen: Soft, nontender, no CVA tenderness. LABS: White count 10.9, hemoglobin 9.7, platelets 236. Sodium 135, potassium 4.2, BUN 10, creatinine 0.9, glucose 200. IMPRESSION: 1. E. Coli pyonephritis. She is on Levaquin day #3. Continue IV dosing for now in the face of her current decline. 2. Respiratory failure with hypoventilation, etiology is unknown. She is morbidly obese. Could have been hypoventilation syndrome from that. Dr. Matias has been consulted, appreciate his help. 3. Diabetes, poor control at home. Hemoglobin A1c over 10%. She was only on Januvia which is a curious choice an obese patient with monotherapy. She is on basal insulin now with detemir insulin as well as sliding scale.
[2018-10-16] MEDS: LEVEMIR (INSULIN DETEMIR) 1 UNITS/0.01ML SC SCH (21:00)
[2018-10-17] VITALS (9 sets, daily range): BP systolic 115–135; BP diastolic 55–74; O2SAT 94–95
[2018-10-17 05:18] LABS: BLOOD UREA NITROGEN 13 MG/DL (7-18); CALCIUM LEVEL 8.6 MG/DL (8.5-10.1); CARBON DIOXIDE LEVEL 36 MEQ/L (21-32); CHLORIDE LEVEL 97 MEQ/L (98-107); CREATININE FOR GFR 0.76 MG/DL (0.55-1.30); GLOMERULAR FILTRATION RATE > 60.0 (>60); GLUCOSE, FASTING 134 MG/DL (70-100); POTASSIUM SERUM 3.6 MEQ/L (3.5-5.1); SODIUM LEVEL 137 MEQ/L (136-145)
[2018-10-17 05:29] LABS: HEMATOCRIT 32.1 % (36.0-47.0); HEMOGLOBIN 9.1 g/dl (12.0-15.5); MEAN CORPUSCULAR HEMOGLOBIN 23.2 pg (27.0-33.0); MEAN CORPUSCULAR HGB CONC 28.3 g/dl (32.0-36.5); MEAN CORPUSCULAR VOLUME 81.9 fl (80.0-96.0); PLATELET COUNT, AUTOMATED 243 10^3/uL (150-450); RED BLOOD COUNT 3.92 10^6/uL (4.00-5.40); WHITE BLOOD COUNT 8.5 10^3/uL (4.0-10.0)
[2018-10-17] MEDS: MEROPENEM INJ 1 GM in IV 1 EA IV SCH ×3 (06:20→21:52)
[2018-10-17] MEDS: HEPARIN SOD (PORCINE) 5000 UNITS/ML VIAL SC SCH ×3 (06:20→21:53)
[2018-10-17] MEDS: LEVOTHYROXINE 75MCG TABLET (0.075MG) PO SCH (06:20)
[2018-10-17] MEDS: PERCOCET 5MG/325MG TAB PO PRN ×2 (06:21→23:43)
[2018-10-17] MEDS: HumaLOG INSULIN (NovoLOG) PER UNIT SC SCH ×4 (07:30→21:00)
[2018-10-17] MEDS: FLUoxetine 20 MG CAP PO SCH (09:55)
[2018-10-17] MEDS: NYSTATIN 100,000 UNITS/GM TOPICAL PWD 15 GM TOP SCH ×2 (09:55→21:53)
[2018-10-17] MEDS: NICOTINE 21MG/24HR 1 EA TRANSDERMAL TD SCH (09:55)
[2018-10-17] MEDS: buPROPion **SR TABLET** (ZYBAN) 150MG PO SCH (09:55)
[2018-10-17 10:38] LABS: ABG BASE EXCESS 5.5 (-2.0-2.0); ABG HCO3 33.1 MEQ/L (22.0-26.0); ABG PARTIAL PRESSURE O2 71.5 mmHg (75.0-100.0); ABG STANDARD HCO3 29.4 MEQ/L (22.0-26.0); ABG TOTAL CO2 35.1 MEQ/L (22.0-29.0); ABG pH (ARTERIAL) 7.319 UNITS (7.350-7.450)
[2018-10-17 10:42] LABS: ABG PARTIAL PRESSURE CO2 65.9 mmHg (35.0-45.0)
--- NOTE | 2018-10-17 14:11 | IPN ---
DATE: 10/17/2018 I attended Aislinn Dickens here in the intensive care unit. The patient has been examined and chart is reviewed. She is currently able to be off noninvasive support and says she is comfortable. She reports that she has no significant underlying obstructive sleep apnea based on a sleep study done in the [facility] clinic in January, but never went back for her titration. She smokes about a half a pack of cigarettes a day, but started Wellbutrin and is trying to cut down. She denies any significant dyspnea or cough at this point. She does not take any respiratory medications at home. T-max overnight 100.5, blood pressure 115-122 systolic, diastolic 80s to 90s, respiratory rate of 18-20. On exam, she is awake, alert and appropriately, lying in bed comfortably. Vital signs as outlined above. HEENT is otherwise normocephalic, atraumatic. Pupils reactive. Neck is supple. Trachea is midline. Mucous membranes nose and mouth are moist. Airway is a class 3. Chest diminished but symmetric expansion. There is some dependent crackles. There is a faint end expiratory wheeze with forced maneuver in the mid zones. No other focal adventitious breath sounds are identified. Cardiac exam distant but regular. Peripheral pulses palpable. No edema. Abdomen obese, soft, with active bowel sounds. Extremities no cyanosis or clubbing. Neurologically she is awake, alert and appropriate. Psych normal mood and affect. White blood cell count 8.5, hemoglobin 9.1, platelet count 243,000. No differential today. Sodium 137, potassium of 3.6, chloride 97, CO2 36, BUN 13, creatinine 0.76, glucose 134. Blood gas done yesterday at 1103 hours showed a pH of 7.283, pCO2 of 77.4, pO2 of 116.3. Blood gas off of noninvasive support this morning is pending. IMPRESSION: 1. Acute on chronic respiratory failure, both hypoxemic and hypercapnic. Suspect obesity hypoventilation syndrome complicating obstructive sleep apnea syndrome. 2. Pyelonephritis. 3. Ongoing tobacco abuse. At this point, she appears to have responded to intervention. We will repeat a blood gas off of her BiPAP. The fact that she really needs to get back for formal titration regarding her sleep apnea as the current situation strongly suggests she strongly needs to be treated for her sleep apnea. Certainly weight reduction and smoking cessation are paramount as well. At this point, will proceed as outlined above. Await her repeat blood gas. Further recommendations will be made in the progress records as new information becomes available. I am in agreement with her current antimicrobials. Ulcer and deep vein thrombosis (DVT) prophylaxis are in place. ILIANA
[2018-10-17 15:45] LABS: ABG BASE EXCESS 17.7 (-2.0-2.0); ABG HCO3 46.7 MEQ/L (22.0-26.0); ABG O2 SATURATION 92.2 % (95.0-99.0); ABG PARTIAL PRESSURE CO2 86.8 mmHg (35.0-45.0); ABG PARTIAL PRESSURE O2 65.1 mmHg (75.0-100.0); ABG STANDARD HCO3 41.6 MEQ/L (22.0-26.0); ABG TOTAL CO2 49.4 MEQ/L (22.0-29.0); ABG pH (ARTERIAL) 7.349 UNITS (7.350-7.450)
--- NOTE | 2018-10-17 20:03 | IPNPDOC ---
Text Note Date of Service The patient was seen on 10/17/18. NOTE Patient doing well on BiPAP today, appears alert and conversive. She states she feels weak but her breathing is improving, she is hungry, wants to trial off BIPAP. Per nursing staff she only tolerated approximately 30 minutes off BIPAP today prior to desaturation, will continue to titrate off. 10 point ROS negative unless noted Vital signs reviewed GEN: Morbidly obese female on BIPAP, NAD HEENT: EOMI, MMM, Thick neck Cardio: s1/s2 present, RRR Lungs: CTA b/l, no wheezing/rales/rhonchi Abd: s, nt, nd, bs present Ext: mild b/l LE edema Psych: anxious in pain Neuro: A&Ox3, no focal neurologic deficits Skin: no bruising or erythema MSK: no focal deficits, moving all extremities. 33 y/o F with DM, Depression, PTSD, morbid obesity, hypothyroidism admitted with acute E. Coli pyelonephritis, admission complicated by acute hypoxic and hypercapnic respiratory failure requiring NIPPV. E. Coli pyelonephritis: Antibiotics changed to Meropenam on 10/16, clinically improving, will continue. Tylenol IV PRN, Percocet PRN, Zofran PRN. Acute hypoxic and hypercapnic respiratory failure requiring NIPPV -continue MICU care, continue BIPAP at current setting, titrate off to nasal cannula. Likely underlying sleep apnea vs OHS as she is morbidly obese. Fur Tinter consult appreciated. ABG off BIPAP showing persistent hypercapnia. Poorly controlled Type 2 DM: continue Lantus 10 units qhs and lispro slilding scale. Monitor finger sticks. Improving control Hypothyroidism: Continue Synthroid Dvt ppx Vital Signs Date Time Temp Pulse Resp B/P (MAP) Pulse Ox O2 Delivery O2 Flow Rate FiO2 10/17/18 19:57 4 10/17/18 16:00 4.0 10/17/18 16:00 98.8 103 20 135/74 (94) 92 4.0 10/17/18 12:00 40 10/17/18 12:00 99.3 91 18 121/61 (81) 92 4.0 10/17/18 08:00 99.0 87 18 117/55 (75) 96 40 10/17/18 08:00 40 10/17/18 07:58 94 BIPAP/CPAP 40 8/26/19 07:58 40 10/17/18 06:55 20 10/17/18 06:30 93 3.0 10/17/18 06:21 19 10/17/18 04:10 94 BIPAP/CPAP 40 10/17/18 04:10 40 10/17/18 04:00 40 10/17/18 04:00 99.5 86 18 122/67 (85) 96 40 10/17/18 02:00 97 45 10/17/18 01:15 96 50 10/17/18 01:10 18 85 40 10/17/18 00:30 40 10/17/18 00:30 95 BIPAP/CPAP 40 10/17/18 00:25 99.5 10/17/18 00:00 100.5 95 20 115/63 (80) 94 40 10/17/18 00:00 40 10/16/18 23:34 22 10/16/18 22:00 18 95 40 10/16/18 21:15 94 20 90 3.0 10/16/18 20:23 40 10/16/18 20:23 96 BIPAP/CPAP 40 Intake & Output 10/17/18 06:00 Intake Total 1580 ml Output Total 3240 ml Balance -1660 ml Laboratory Tests 10/16/18 20:25: Bedside Glucose (Misc Panel) 161H 10/17/18 04:48: White Blood Count 8.5, Red Blood Count 3.92L, Hemoglobin 9.1L, Hematocrit 32.1L, Mean Corpuscular Volume 81.9, Mean Corpuscular Hemoglobin 23.2L, Mean Corpuscular Hemoglobin Concent 28.3L, Red Cell Distribution Width 20.0H, Platelet Count 243, Nucleated Red Blood Cells % (auto) 0.0, Blood Urea Nitrogen 13, Creatinine 0.76, Sodium Level 137, Potassium Level 3.6, Chloride Level 97L, Carbon Dioxide Level 36H, Calcium Level 8.6, Anion Gap 4L, Glomerular Filtration Rate > 60.0, Fasting Glucose 134H 10/17/18 07:35: Bedside Glucose (Misc Panel) 125H 10/17/18 10:32: Blood Gas Bicarbonate Standard 29.4H, Arterial Blood pH 7.319L, Arterial Blood Partial Pressure CO2 65.9*H, Arterial Blood Partial Pressure O2 71.5L, Arterial Blood Total CO2 35.1H, Arterial Blood HCO3 33.1H, Arterial Blood Base Excess 5.5H, Arterial Blood Oxygen Saturation 93.0L 10/17/18 11:36: Bedside Glucose (Misc Panel) 130H 10/17/18 15:38: Blood Gas Bicarbonate Standard 41.6H, Arterial Blood pH 7.349L, Arterial Blood Partial Pressure CO2 86.8*H, Arterial Blood Partial Pressure O2 65.1L, Arterial Blood Total CO2 49.4H, Arterial Blood HCO3 46.7H, Arterial Blood Base Excess 17.7H, Arterial Blood Oxygen Saturation 92.2L 10/17/18 17:15: Bedside Glucose (Misc Panel) 166H Microbiology 10/12/18 Blood Culture - Final, Complete NO GROWTH AFTER 5 DAYS 10/12/18 Urine Culture - Final, Complete E.coli Esbl Current Medications Medications (Trade) Dose Ordered Sig/Trent Route PRN Reason Start Time Stop Time Status Last Admin Dose Admin Acetaminophen (Tylenol Tab) 1,000 mg Q8HP PRN PO PAIN / FEVER 10/15/18 20:30 10/15/18 20:27 1,000 MG Aripiprazole (AbiLIFY) 5 mg DAILY PO 10/14/18 09:00 10/17/18 09:55 5 MG Bupropion HCl (Zyban, Wellbutrin Sr) 150 mg DAILY PO 10/13/18 09:00 10/17/18 09:55 150 MG Fluoxetine HCl (PROzac) 20 mg DAILY PO 10/13/18 09:00 10/17/18 09:55 20 MG Heparin Sodium (Porcine) (Heparin) 5,000 units Q8H SC 10/12/18 22:00 10/17/18 14:24 5,000 UNITS Insulin Detemir (Levemir Insulin) 10 units QHS SC 10/14/18 21:00 10/15/18 21:19 10 UNITS Insulin Human Lispro (HumaLOG INSULIN) SEE PROTOCOL TABLE QHS SC 10/12/18 21:00 10/13/18 21:08 4 UNITS Levothyroxine Sodium (Synthroid) 75 mcg DAILY@06 PO 10/13/18 06:00 10/17/18 06:20 75 MCG Meropenem 1 gm/IV Miscellaneous Supplies 50 ml @ 100 mls/hr Q8H IV 10/16/18 06:00 10/17/18 14:24 100 MLS/HR Nicotine (Nicoderm Cq 21mg) 1 patch DAILY TD 10/13/18 09:00 10/17/18 09:55 1 PATCH Nystatin (Mycostatin Powder, Nystop) apply to abdominal and gr... BID TOP 10/16/18 09:00 10/17/18 09:55 1 DOSE Ondansetron HCl (ZOFRAN INJection) 4 mg Q4HP PRN IV NAUSEA OR VOMITING 10/12/18 19:00 10/15/18 21:43 4 MG Oxycodone/ Acetaminophen (Percocet 5mg/ 325mg Tablet) 1 tab Q6HP PRN PO MILD/MODERATE PAIN (PS 1-7) 10/13/18 01:15 10/17/18 06:21 1 TAB VS,Fishbone, I+O VS, Fishbone, I+O Laboratory Tests 10/17/18 04:48 Red Blood Count 3.92 L, Mean Corpuscular Volume 81.9, Mean Corpuscular Hemoglobin 23.2 L, Mean Corpuscular Hemoglobin Concent 28.3 L, Red Cell Distribution Width 20.0 H, Calcium Level 8.6 Vital Signs Date Time Temp Pulse Resp B/P (MAP) Pulse Ox O2 Delivery O2 Flow Rate FiO2 10/17/18 19:57 4 10/17/18 16:00 98.8 103 20 135/74 (94) 92 10/17/18 07:58 BIPAP/CPAP I&O- Last 24 Hours up to 6 AM 10/17/18 06:00 Intake Total 1580 ml Output Total 3240 ml Balance -1660 ml MIREILLE MARTINEZ MD Oct 17, 2018 20:03
--- NOTE | 2018-10-17 20:04 | CCN ---
DATE: 10/16/2018 CRITICAL CARE NOTE: I was called to evaluate this 33-year-old female admitted on 10/12/2018 with pyelonephritis. She has a past medical history of morbid obesity, hypothyroidism, obstructive sleep apnea syndrome and tobacco use. Initially responding to Levaquin. Her urine showed extended-spectrum beta-lactamase (ESBL) Escherichia (E) coli. Last evening, she developed chills, a temperature to 100.8 and antibiotics were changed to meropenem. Arterial blood gases were abnormal. She was now transferred to the intensive care unit for noninvasive positive pressure ventilation. She is sleepy but arousable. Temperature is 99.4, pulse rate 97, respirations 20, blood pressure 115/60. HEENT: Oral and nasal mucosa are pink. Her oropharynx is small in dimension. Mallampati class III. Neck is shetty. Jugular veins not appreciable. Neck is supple. Heart sounds are regular, distant. Breath sounds diminished bilaterally, coarse. Abdomen is soft, obese with intact bowel sounds. Extremities show some chronic edematous changes. DIAGNOSTIC STUDIES: Her chest x-ray shows prominence of the interstitium and cardiomegaly to my eye. It is, however, a portable film. White cell count is 10.9, hemoglobin 9.7, hematocrit 34.1, platelet count 234,000. Differential white cell count shows 89.5% neutrophils. Sodium is 132, potassium 4.2, chloride 94, CO2 32, BUN 9, creatinine 1.06, glucose 237. Arterial blood gases show a pH of 7.23, pCO2 73, pO2 129. The primary problem requiring critical attention is acute respiratory failure. We will administer noninvasive positive pressure ventilation and followup arterial blood gases. Fluid volume is very positive, five liters over admission. I will stop the beta xander and decrease the IV rate. The patient easily could have some interstitial pulmonary edema. Obesity hypoventilation syndrome. I suspect that the patient will require pressure therapy at night going forward until effective weight loss can be accomplished. Extended-spectrum beta-lactamase (ESBL) Escherichia (E) coli pyelonephritis. The patient is now maintained on meropenem. The patient's condition is critical. Prognosis is guarded. One hour and 10 minutes was spent in the provision of bedside critical care and coordination.
[2018-10-17] MEDS: LEVEMIR (INSULIN DETEMIR) 1 UNITS/0.01ML SC SCH (21:53)
[2018-10-18] VITALS (7 sets, daily range): BP systolic 117–151; BP diastolic 55–68
[2018-10-18] MEDS: HEPARIN SOD (PORCINE) 5000 UNITS/ML VIAL SC SCH ×3 (05:02→21:37)
[2018-10-18] MEDS: MEROPENEM INJ 1 GM in IV 1 EA IV SCH ×3 (05:02→21:37)
[2018-10-18] MEDS: LEVOTHYROXINE 75MCG TABLET (0.075MG) PO SCH (05:02)
[2018-10-18 05:12] LABS: HEMATOCRIT 31.7 % (36.0-47.0); HEMOGLOBIN 9.2 g/dl (12.0-15.5); MEAN CORPUSCULAR HEMOGLOBIN 23.3 pg (27.0-33.0); MEAN CORPUSCULAR VOLUME 80.3 fl (80.0-96.0); PLATELET COUNT, AUTOMATED 269 10^3/uL (150-450); RED BLOOD COUNT 3.95 10^6/uL (4.00-5.40); WHITE BLOOD COUNT 8.5 10^3/uL (4.0-10.0)
[2018-10-18 05:29] LABS: BLOOD UREA NITROGEN 11 MG/DL (7-18); CALCIUM LEVEL 9.1 MG/DL (8.5-10.1); CARBON DIOXIDE LEVEL 41 MEQ/L (21-32); CHLORIDE LEVEL 97 MEQ/L (98-107); CREATININE FOR GFR 0.64 MG/DL (0.55-1.30); GLOMERULAR FILTRATION RATE > 60.0 (>60); GLUCOSE, FASTING 129 MG/DL (70-100); POTASSIUM SERUM 3.3 MEQ/L (3.5-5.1); SODIUM LEVEL 138 MEQ/L (136-145)
[2018-10-18] MEDS: HumaLOG INSULIN (NovoLOG) PER UNIT SC SCH ×4 (07:31→21:00)
[2018-10-18] MEDS: NICOTINE 21MG/24HR 1 EA TRANSDERMAL TD SCH (08:10)
[2018-10-18] MEDS: NYSTATIN 100,000 UNITS/GM TOPICAL PWD 15 GM TOP SCH ×2 (08:10→20:35)
[2018-10-18] MEDS: FLUoxetine 20 MG CAP PO SCH (08:10)
[2018-10-18] MEDS: buPROPion **SR TABLET** (ZYBAN) 150MG PO SCH (08:10)
--- NOTE | 2018-10-18 10:13 | IPNPDOC ---
Text Note Date of Service The patient was seen on 10/18/18. NOTE S: 33 y/o F with DM, Depression, PTSD, morbid obesity, hypothyroidism admitted with acute ESBL -E. Coli pyelonephritis, admission complicated by acute hypoxic and hypercapnic respiratory failure requiring NIPPV and oxygen. Patient states she is leaving tomorrow no matter what because evicted from her apartment and friends driving her back to [place] to be closer to family. O: Vitals as below Ox Sat RA 82%, 3 Liter =95%; still requiring BIPAP with sleep and naps General: morbidly obese, NAD AAOx3 HRRR LCTA Abdomen : soft NT ND NABS; Cheung intact Ext: lymphedema A/P: 1) ESBL acute E. Coli pyelonephritis: Antibiotics changed to Meropenam on 10/16, clinically improving, will continue. Tylenol IV PRN, Percocet PRN, Zofran PRN. Discussed with patient that leaving AMA may cause kidney damage. If patient leaves AMA, will change to po bactrim 2) Acute hypoxic and hypercapnic respiratory failure requiring NIPPV due to obesity hypoventilation syndrome and probable FREDO. Pulm consulted. Discussed with patient that she is still requiring oxygen and that if she leaves AMA, she may have further hypoxic respiratory failure and . Will ask resp/case maangement to contact [facility] for possible portable home oxygen if she leaves AMA. 3) Poorly controlled Type 2 DM: continue Lantus 10 units qhs and lispro slilding scale. Monitor finger sticks. Improving control; was on avandia prior to admission , per patient. nursing staff to educate on diabetes, insulin use, etc. Patient does not have glucometer and does not check BS at home. 4) Hypothyroidism: Continue Synthroid Possible AMA tomorrow - discussed risk with patient including from hypoxia, kidney damage, dialysis, etc. VS,Fishbone, I+O VS, Fishbone, I+O Laboratory Tests 10/18/18 04:50 Red Blood Count 3.95 L, Mean Corpuscular Volume 80.3, Mean Corpuscular He moglobin 23.3 L, Mean Corpuscular Hemoglobin Concent 29.0 L, Red Cell Distribution Width 19.9 H, Calcium Level 9.1 Vital Signs Date Time Temp Pulse Resp B/P (MAP) Pulse Ox O2 Delivery O2 Flow Rate FiO2 10/18/18 05:00 20 93 4.0 10/18/18 04:00 99.5 93 119/57 (77) 35 10/17/18 07:58 BIPAP/CPAP I&O- Last 24 Hours up to 6 AM 10/18/18 06:00 Intake Total 4655 ml Output Total 3950 ml Balance 705 ml DUY BONILLA DO Oct 18, 2018 10:13
--- NOTE | 2018-10-18 10:55 | IPN ---
DATE: 10/18/2018 I again attended Aislinn Dickens. She is awake, alert and appropriate. She remains on bilevel positive airway pressure (BiPAP) only for bedtime and naps. Today, we have been unable to obtain her outpatient sleep study but will place a call to the sleep and wellness center in [facility] today. Maximum temperature (Tmax) overnight 99.6, blood pressure in the 110s, heart rate generally in the 90s, respiratory rate 18-20 without accessory muscle use. Intake and output midnight to midnight 4055 mL in with 3675 mL out. White blood cell count 8.5, hemoglobin 9.2, platelet count 269,000. No differential today. Sodium 138, potassium of 3.3, chloride 97, CO2 41, BUN 11, creatinine 0.64. Antibiotics remain meropenem managed through the primary service. On exam. she is awake, alert and appropriate. Mucous membranes are moist. Sclerae are clear. Trachea is in the midline. Lungs clear to auscultation and percussion and no significant focal adventitious breaths are identified. Cardiac exam regular with no gallop. Peripheral pulses palpable. No edema. Abdomen obese, soft, with active bowel sounds. Extremities: No cyanosis or clubbing. Neurologically, she is awake, alert and appropriate. Psychiatric: Normal mood and affect. No other new imaging or blood gases today. IMPRESSION: 1. Acute on chronic respiratory failure, both hypoxemic and hypercapnic. Suspect primary obesity hypoventilation syndrome complicating obstructive sleep apnea syndrome currently not being treated. 2. Pyelonephritis. RECOMMENDATIONS: At this point, we will try her on a tabletop device while he is here. I had a long discussion with her regarding the fact that she clearly needs her sleep apnea treated. Unfortunately, under certain current insurance constraints, I am unable to get her a pressure device for home until she gets back to the lab and gets formally titrated. We will treat her as adequately as we can as long as she is here. We will get a nocturnal oximetry on a tabletop device and will use settings of 16/4, which seems to be adequate for her here in the intensive care unit (ICU). We will assess her oxygenation status prior to discharge. Activity is per the primary service. Antibiotics are per the primary service. Ulcerative deep venous thrombosis (DVT) prophylaxis is per the primary service. At this point, we will proceed as outlined above. Further recommendations will be made in the progress record as new information becomes available. MTDD
[2018-10-18] MEDS ORDERED: POTASSIUM CHLORIDE 10 MEQ SR TABLET PO ONE (11:00)
[2018-10-18] MEDS: LEVEMIR (INSULIN DETEMIR) 1 UNITS/0.01ML SC SCH (20:35)
[2018-10-18] MEDS ORDERED: RAMELTEON 8 MG TAB (ROZEREM) PO SCH (21:00)
[2018-10-19] VITALS: BP 127/58
[2018-10-19 04:00] VITALS: BP 124/69
[2018-10-19 05:16] LABS: HEMATOCRIT 35.1 % (36.0-47.0); MEAN CORPUSCULAR HEMOGLOBIN 22.3 pg (27.0-33.0); MEAN CORPUSCULAR HGB CONC 28.5 g/dl (32.0-36.5); MEAN CORPUSCULAR VOLUME 78.2 fl (80.0-96.0); PLATELET COUNT, AUTOMATED 356 10^3/uL (150-450); RED BLOOD COUNT 4.49 10^6/uL (4.00-5.40); WHITE BLOOD COUNT 10.3 10^3/uL (4.0-10.0)
[2018-10-19 05:38] LABS: BLOOD UREA NITROGEN 10 MG/DL (7-18); CALCIUM LEVEL 8.9 MG/DL (8.5-10.1); CARBON DIOXIDE LEVEL 42 MEQ/L (21-32); CHLORIDE LEVEL 96 MEQ/L (98-107); GLOMERULAR FILTRATION RATE > 60.0 (>60); GLUCOSE, FASTING 127 MG/DL (70-100); POTASSIUM SERUM 3.4 MEQ/L (3.5-5.1); SODIUM LEVEL 142 MEQ/L (136-145)
[2018-10-19] MEDS: LEVOTHYROXINE 75MCG TABLET (0.075MG) PO SCH (05:42)
[2018-10-19] MEDS: HEPARIN SOD (PORCINE) 5000 UNITS/ML VIAL SC SCH (05:42)
[2018-10-19] MEDS: MEROPENEM INJ 1 GM in IV 1 EA IV SCH (05:42)
[2018-10-19 08:00] VITALS: BP 130/66
[2018-10-19] MEDS ORDERED: BACT800T5 PO (08:14)
[2018-10-19] MEDS ORDERED: LANTINJ4 SC (08:14)
[2018-10-19] MEDS ORDERED: [UNRECOGNIZED DRUG - OTHER] XX (08:14)
[2018-10-19] MEDS ORDERED: BD P31MI2 SC (08:14)
[2018-10-19] MEDS: buPROPion **SR TABLET** (ZYBAN) 150MG PO SCH (08:35)
[2018-10-19] MEDS: HumaLOG INSULIN (NovoLOG) PER UNIT SC SCH ×2 (08:35→12:00)
[2018-10-19] MEDS: NICOTINE 21MG/24HR 1 EA TRANSDERMAL TD SCH (08:36)
[2018-10-19] MEDS: FLUoxetine 20 MG CAP PO SCH (08:36)
[2018-10-19] MEDS ORDERED: POTASSIUM CHLORIDE 10 MEQ SR TABLET PO ONE (09:00)
[2018-10-19] MEDS: NYSTATIN 100,000 UNITS/GM TOPICAL PWD 15 GM TOP SCH (09:00)
--- NOTE | 2018-10-19 19:27 | DS.PDOC ---
Discharge Summary General Date of Admission Oct 12, 2018 at 17:37 Date of Discharge 10/19/18 AMA Attending Physician: DUY BONILLA DO Specialist/Consultants Involve: Brian Ceja Discharge Summary PROCEDURES PERFORMED DURING STAY: none ADMITTING DIAGNOSES: (1) Acute pyelonephritis (2) Uncontrolled diabetes mellitus (3) Dehydration (4) Lactic acidosis (5) Uncontrolled hypertension (6) Tobacco abuse (7) COPD (chronic obstructive pulmonary disease) (8) Hypothyroidism (9) Morbid obesity with BMI of 60.0-69.9, adult (10) Depression DISCHARGE DIAGNOSES: 1. Acute on chronic respiratory failure - hypoxemic and hypercapneic 2. ESBL acute E Coli Pyelonephritis 3. Obesity hypoventilation syndrome 4. Diabetes poorly controlled requiring terminal carman insulin with hyperglycemia 5. hypothryoidism 6. dehydration 7. lactic acidosis 8. Essential hypertension 9. Non compliance - left AMA COMPLICATIONS/CHIEF COMPLAINT: Pyelonephritis. HISTORY OF PRESENT ILLNESS:33-year-old female with h/o diabetes,depression,PTSD,morbid obesity,hypothyroidism,tobacco abuse who presented to ED because of back as she is indicating her left flank.The pain is sharp and started today morning.It does not radiate.Patient is also reporting chills,nausea and vomiting.She is not able to tell if she had fever.Patient was discharged from this hospital in August 10 after being admitted to psych unit for depression with suicidal ideation.In ED,initial vital signs showed Temp 95.9,BP 211/85.Lab showed wbc 13.4,glucose 333,lactic acid 3.0.CT abdm/pelvis was done however the reading by radiology is pending.Patient was diagnosed with acute pyelonephritis and was started on iv ceftriaxone.The hospitalist team was then called for admission.At the time of my evaluation,patient is feeling better than she first arrive in the ED.Her left flank has improved. See H&P for details. HOSPITAL COURSE: Patient admitted, given IVF and antibiotics with improvement of her lactic acid levels. Her elevated lactic acid levels were Likely due to dehydration,uncontrolled diabetes. No signs of sepsis. Because of pyelonephritis seen on on CT, she was started on rocephin from to 10/12-10/13 , changed to levaquin 10/14-10/15 and then meropenem 10/15 to present; when cultures returned showing ESBL E Coli. Her WBC continued to show improving trend. Her blood cultures remained negative. As for her diabetes, avandia was stopped and she was started on levemir and sliding scale insulin. She was given diabetic education on insulin use and glucometer use. H gA1c 10.6. As for her hypoxic, hypercapneic respiratory failure, pulmonology was consulted and patient placed on bipap with setting of 16/4 while asleep or napping and on 3 liter NC oxygen during day. Her oxygenation at rest was 82% RA prior to leaving AMA. With 3 liters, her oxygentation was 95%. It was suspected that her respiratory failure (hypoxic, hypercapneic) was due to primary obesity hypoventilation syndrome complicating obstructive sleep apnea syndrome . She will need to be set up for sleep study as outpatient. Patient insisted on leaving AMA, Discussed with patient that leaving AMA may cause kidney damage from undertreated ESBL pyelonephritis. Also discussed with patient leaving AMA, will change to po bactrim antibiotic. Discussed with patient that she is still requiring oxygen and that if she leaves AMA, she may have further hypoxic respiratory failure and . Patient demonstrated good understand of risks of leaving AMA but wanted to pack her apartment (being evicted) and drive with friends/relatives home to [place] for further care. She was advised if ANY worsening of respiratory status or increasing back pain, fever - to go to nearest ER. DISCHARGE MEDICATIONS: Please see below. ALLERGIES: Please see below. PHYSICAL EXAMINATION ON DISCHARGE: VITAL SIGNS: Please see below. General: morbidly obese, NAD AAOx3 HRRR LCTA Abdomen : soft NT ND NABS; Ext: lymphedema LABORATORY DATA: Please see below. PROGNOSIS:poor ACTIVITY: rest, use oxygen at all times DIET: diabetic DISCHARGE PLAN: discharge AMA DISPOSITION: AMA DISCHARGE INSTRUCTIONS: 1.follow up 2-3 days in [place] with new PCP for recheck oxygen and pylenephritis and diabetes 2. use oxygen 3 liter continously 3. stop every 90 minutes while traveling from [place] to [place] to get out of car and walk around 4. CAREN hose while traveling 5. bactrim DS BID x 10 days or until seen by PCP to recheck pyelonephritis 6. check blood sugars twice a day. do not take lantus if blood sugar under 100 ITEMS TO FOLLOWUP ON ON OUTPATIENT: 1. repeat UA culture 2. FREDO testing DISCHARGE CONDITION: stable for now Patient was set up with temporary oxygen until gets to [place] to have her PCP set her up with oxygen and FREDO testing. TIME SPENT ON DISCHARGE: 40 minutes. Vital Signs/I&Os Vital Signs Date Time Temp Pulse Resp B/P (MAP) Pulse Ox O2 Delivery O2 Flow Rate FiO2 10/19/18 06:05 96 16/4 2.0 10/19/18 04:00 98.0 94 16 124/69 (87) 10/18/18 04:00 35 I&O- Last 24 Hours up to 6 AM 10/19/18 06:00 Intake Total 1780 ml Output Total 4200 ml Balance -2420 ml Laboratory Data Labs 24H Laboratory Tests 2 10/18/18 11:40: Bedside Glucose (Misc Panel) 191H 10/18/18 16:57: Bedside Glucose (Misc Panel) 212H 10/18/18 20:40: Bedside Glucose (Misc Panel) 176H 10/19/18 05:05: Nucleated Red Blood Cells % (auto) 0.0, Anion Gap 4L, Glomerular Filtration Rate > 60.0, Blood Urea Nitrogen 10, Creatinine 0.70, Sodium Level 142, Potassium Level 3.4L, Chloride Level 96L, Carbon Dioxide Level 42H, Calcium Level 8.9 CBC/BMP Laboratory Tests 10/19/18 05:05 Red Blood Count 4.49, Mean Corpuscular Volume 78.2 L, Mean Corpuscular Hemoglobin 22.3 L, Mean Corpuscular Hemoglobin Concent 28.5 L, Red Cell D istribution Width 20.1 H, Calcium Level 8.9 FSBS Laboratory Tests Test 10/18/18 11:40 10/18/18 16:57 10/18/18 20:40 Range/Units Bedside Glucose (Misc Panel) 191 212 176 70-105 MG/DL Microbiology Microbiology 10/15/18 Blood Culture - Preliminary, Resulted No Growth after 72 hours. All specime... 10/15/18 Blood Culture - Preliminary, Resulted No Growth after 72 hours. All specime... 10/12/18 Blood Culture - Final, Complete NO GROWTH AFTER 5 DAYS 10/12/18 Urine Culture - Final, Complete E.coli Esbl Discharge Medications Scheduled Aripiprazole (Aripiprazole) 5 Mg Tablet, 5 MG PO DAILY, (Reported) Bupropion HCl (Bupropion HCl Sr) 150 Mg Tab.er.12h, 150 MG PO DAILY, (Reported) Fluoxetine Hcl (Fluoxetine HCl) 20 Mg Capsule, 20 MG PO DAILY, (Reported) Insulin Glargine,Hum.rec.anlog (Lantus Solostar) 100 Unit/1 Ml Insuln.pen, 10 UNIT SC QPM Levothyroxine Sodium (Synthroid) 75 Mcg Tablet, 75 MCG PO DAILY, (Reported) TAKES BRAND SYNTHROID AT HOME Sulfamethoxazole/Trimethoprim (Bactrim Ds Tablet) 1 Each Tablet, 1 TAB PO BID Allergies Coded Allergies: metformin (Verified Adverse Reaction, Intermediate, gi, 10/15/18) DUY BONILLA DO Oct 19, 2018 08:37
== END 2018-10-19 12:47 | disposition left against medical advice (07) | DRG 689 ==
LOC: M ED 13:46 → EEVIPCON 17:37 → M ED INP 17:37 → M MSPAV 10-13 00:46 → M ICU 10-16 02:44
PROVIDERS: ADMIT Internal Medicine; ATTEND Family Medicine
PROC: 5A09457 Assistance with Respiratory Ventilation, 24-96 Consecutive Hours, Continuous Positive Airway Pressure (ICD-10-PCS; principal; 2018-10-16)
DX: N10 Acute pyelonephritis (principal); J96.21 Acute and chronic respiratory failure with hypoxia; J96.22 Acute and chronic respiratory failure with hypercapnia; Z68.44 Body mass index [BMI] 60.0-69.9, adult; E87.2 Acidosis; E66.2 Morbid (severe) obesity with alveolar hypoventilation; E86.0 Dehydration; J44.9 Chronic obstructive pulmonary disease, unspecified; E03.9 Hypothyroidism, unspecified; B96.20 Unspecified Escherichia coli [E. coli] as the cause of diseases classified elsewhere; F43.10 Post-traumatic stress disorder, unspecified; F32.9 Major depressive disorder, single episode, unspecified; E11.65 Type 2 diabetes mellitus with hyperglycemia; F17.200 Nicotine dependence, unspecified, uncomplicated; Z79.899 Other long term (current) drug therapy; Z91.19 Patient's noncompliance with other medical treatment and regimen; Z79.84 Long term (current) use of oral hypoglycemic drugs